=== PATIENT | female | born 1955 | race Caucasian/White ===

== ENCOUNTER 2023-09-10 23:31 | Observation (INO) | payer MEDICARE, SELFPAY ==
[2023-09-10 23:36] VITALS: BP 190/107; PULSE 65; RESP 16; TEMP 36.4; O2SAT 98
--- NOTE | 2023-09-10 23:44 | XRR_ITS ---
PROCEDURE INFORMATION: Exam: XR Chest Exam date and time: 09/10/2023 11:51 PM Age: 68 years old Clinical indication: Other: Palpitations; Chest wall pain; Additional info: Cp TECHNIQUE: Imaging protocol: Radiologic exam of the chest. Views: 1 view. COMPARISON: No relevant prior studies available. FINDINGS: Lungs: The lungs are clear. Pleural spaces: Although the left costophrenic angle is indistinct, this may be due to the heart and an epicardial fat pad. No definite abnormalities Heart/Mediastinum: Normal Bones/joints: Unremarkable. XR/XR chest 1V portable [id number] IMPRESSION: No acute findings
--- NOTE | 2023-09-10 23:45 | ECG_ITS ---
[facility] Test Date: 2023-09-10 Pat Name: Belkys Steiner Department: Room: Gender: Female Manager Social: : 1955 Requested By: Trip New Order Number: [id number] Lisandro MD: Johan Kim M.D. Measurements Intervals [place] Rate: 59 P: 45 MD: 124 QRS: -6 QRSD: 78 T: 35 QT: 410 QTc: 407 Interpretive Statements SINUS BRADYCARDIA WITH SINUS ARRHYTHMIA MODERATE ST DEPRESSION [0.05+ mV ST DEPRESSION] No previous ECG available for comparison Electronically Signed On 09-11-2023 12:18:50 LOGGING TRUCK DRIVER by Johan Kim M.D. [id number]
--- NOTE | 2023-09-10 23:50 | ED_ITS ---
HPI - Chest Pain 2 General: Chief Complaint: Chest Pain Stated Complaint: Chest Palpitations Time Seen by Provider: 09/10/23 23:34 Source: patient and EMS Mode of arrival: EMS Limitations: no limitations History of Present Illness: 68-year-old female who states she is her e on vacation she has a history A-fib states last 2-3 nights she has been having some palpitations at all resolved at home states she started having palpitations again tonight lasted longer than typical. She states that her symptoms have since resolved. States she had felt like she is just having her heart race she states she has been taking her meds she denies any worsening proving factors. Associated symptoms: Reports palpitations; Deny abdominal pain, dyspnea, fever(s), nausea or vomiting Review of Systems 2 Const: Denies: fever(s), chills, body aches or change in appetite ENMT: Denies: throat pain or dental pain Card: Reports: palpitations; Denies: chest pain Resp: Denies: dyspnea GI: Denies: abdominal pain, nausea, vomiting or diarrhea : Denies: dysuria Musc: Denies: neck pain or back pain Skin/Breast: Denies: rash Neuro: Denies: headache(s) Physical Exam 2 Const: COMMON NORMALS: no acute distress, patient oriented x3 and healthy appearing HENMT: COMMON NORMALS: normocephalic and atraumatic HEAD & SCALP: n ormocephalic and atraumatic Eye: COMMON NORMALS: conjunctivae normal CONJUNCTIVA: Yes conjunctivae normal Neck/C-Spine: COMMON NORMALS: full ROM and supple Chest: COMMONS NORMALS: normal inspection of the chest Resp: COMMON NORMALS: normal respiratory effort, No retractions, No use of accessory muscles and clear to auscultation bilaterally AUSCULTATION: clear to auscultation bilaterally Cardio: COMMON NORMALS: regular rate, regular rhythm and No murmurs present (Cardio) RATE: regular rate RHYTHM: regular rhythm Extremity: COMMON NORMALS: normal to inspection and full ROM Neuro: COMMON NORMALS: patient oriented x3, moves all extremities and no focal motor deficits Psych: COMMON NORMALS: mental status grossly normal, Normal thought process present and cooperative THOUGHT PROCESS: Normal thought process present Skin: COMMON NORMALS: no rashes or lesions noted and no wounds GENERAL SKIN EXAM: no rashes or lesions noted Course 2 Vital Signs: Vital signs: Vital Signs Temperature 97.6 F 09/10/23 23:36 Pulse Rate 57 L 09/11/23 02:12 Respiratory Rate 19 H 09/11/23 02:12 Blood Pressure 154/85 09/11/23 02:12 Pulse Oximetry 97 09/11/23 02:12 MDM - Chest Pain Medical Decision Making Patient presents here with chest pain does have some ST depression on her EKG her troponins here are negative CT shows no PE spoke to hospitalist will admit for ACS rule out at this time. Medical Records I reviewed the patient's medical records. Lab Data I reviewed the patient's lab results. 09/11/23 00:58 09/11/23 00:58 Radiology Impressions Chest X-Ray 09/10/23 23:44 IMPRESSION: No acute findings Chest CTA 09/11/23 01:48 IMPRESSION: 1. No pulmonary embolus. 2. No focal consolidation. Laboratory Results WBC 7.66 10^3/uL (3.29-11.43) 09/11/23 00:58 RBC 4.17 10^6/uL (3.85-5.65) 09/11/23 00:58 Hgb 14.00 g/dL (11.27-16.99) 09/11/23 00:58 Hct 39.3 % (36-47) 09/11/23 00:58 MCV 94.2 fl (85-98) 09/11/23 00:58 MCH 33.6 pg (27-33) H 09/11/23 00:58 MCHC 35.6 g/dL (30-55) 09/11/23 00:58 RDW 12.7 % (12.1-15.1) 09/11/23 00:58 Plt Count 234 10^3/cmm (157-399) 09/11/23 00:58 MPV 11.9 fL (7.4-10.4) H 09/11/23 00:58 Neut % (Auto) 62.7 % 09/11/23 00:58 Lymph % (Auto) 24.8 % 09/11/23 00:58 [place] % (Auto) 9.0 % 09/11/23 00:58 Eos % (Auto) 2.3 % 09/11/23 00:58 Baso % (Auto) 0.9 % 09/11/23 00:58 Neut # (Auto) 4.80 10^3/uL (1.8-7.7) 09/11/23 00:58 Lymph # (Auto) 1.9 10^3/uL (0.8-4.8) 09/11/23 00:58 [place] # (Auto) 0.7 10^3/uL (0.2-0.9) 09/11/23 00:58 Eos # (Auto) 0.2 10^3/uL (0.0-0.8) 09/11/23 00:58 Baso # (Auto) 0.1 10^3/uL (0.0-0.1) 09/11/23 00:58 Nucleated RBC % (auto) 0 % 09/11/23 00:58 Nucleated RBCs # 0.0 /100WBC 09/11/23 00:58 PT 12.80 SECONDS (12.1-14.9) 09/11/23 00:58 INR 0.94 (0.8-1.2) 09/11/23 00:58 Sodium 143 mmol/L (136-145) 09/11/23 00:58 Potassium 3.6 mmol/L (3.5-5.1) 09/11/23 00:58 Chloride 107 mmol/L (98-107) 09/11/23 00:58 Carbon Dioxide 22 mmol/L (22-29) 09/11/23 00:58 Anion Gap 17.6 (5-19) 09/11/23 00:58 BUN 14 mg/dL (8-23) 09/11/23 00:58 Creatinine 0.7 mg/dL (0.5-0.9) 09/11/23 00:58 GFR Calculation 83.5 mL/min (90-130) L 09/11/23 00:58 Glucose 109 mg/dL (65-115) 09/11/23 00:58 Calculated Osmolality 297 mOsm/kg (285-295) H 09/11/23 00:58 Calcium 9.8 mg/dL (8.5-10.5) 09/11/23 00:58 Total Bilirubin 0.6 mg/dL (0.15-1.2) 09/11/23 00:58 AST 17 U/L (0-32) 09/11/23 00:58 ALT 17 U/L (0-33) 09/11/23 00:58 Alkaline Phosphatase 143 U/L (35-105) H 09/11/23 00:58 Troponin T Baseline < 6 ng/L (0-10) 09/11/23 00:58 Troponin T 120 Minute 6.00 ng/L (0-10) 09/11/23 02:56 Delta Troponin T 0.62177 ABS# (0-10) 09/11/23 02:56 NT-Pro-B Natriuret Pep 1069 pg/mL (0-125) H 09/11/23 00:58 Total Protein 7.2 g/dL (6.6-8.7) 09/11/23 00:58 Albumin 4.3 g/dL (3.5-5.2) 09/11/23 00:58 Globulin 2.9 g/dL (1.3-4.6) 09/11/23 00:58 All radiology interpretation(s) finalized by discharge EKG Data EKG 1: I personally reviewed and interpreted this EKG as follows: EKG interpretation date: 09/10/23 EKG interpretation time: 23:36 Interpretation: sinus tor hr [address] or t wave abnormalities qrs 78 qtc 408 Discharge Plan Discharge Condition: Stable Coding Level of Care Code ED Reciprocating Drill Operator for Duran Shaikh
[2023-09-11] VITALS (18 sets, daily range): BP systolic 122–167; BP diastolic 62–86; PULSE 57–82; RESP 8–25; TEMP 36.6–36.8; O2SAT 95–99
[2023-09-11] MEDS: hyDRALAzine 20 mg/mL INJ 1 mL 10 MG IVP (00:19)
[2023-09-11 01:04] LABS: Basophils # 0.1 10^3/uL (0.0-0.1); Basophils % 0.9 %; Eosinophils # 0.2 10^3/uL (0.0-0.8); Eosinophils % 2.3 %; Hematocrit 39.3 % (36-47); Lymphocytes # 1.9 10^3/uL (0.8-4.8); Lymphocytes % 24.8 %; Mean Corpuscular HGB Conc 35.6 g/dL (30-55); Mean Corpuscular Hemoglobin 33.6 pg (27-33); Mean Corpuscular Volume 94.2 fl (85-98); Mean Platelet Volume 11.9 fL (7.4-10.4); Monocytes # 0.7 10^3/uL (0.2-0.9); Neutrophils % 62.7 %; Nucleated Red Blood Cells % 0 %; Platelet Count 234 10^3/cmm (157-399); Red Blood Count 4.17 10^6/uL (3.85-5.65); Red Cell Distribution Width 12.7 % (12.1-15.1); White Blood Count 7.66 10^3/uL (3.29-11.43)
[2023-09-11] MEDS: hyDRALAzine 20 mg/mL INJ 1 mL IVP (01:15)
[2023-09-11 01:17] LABS: INR 0.94 (0.8-1.2)
[2023-09-11 01:26] LABS: Troponin(5th) Baseline < 6 ng/L (0-10)
--- NOTE | 2023-09-11 01:27 | ECG_ITS ---
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 Measurements Intervals [place] Rate: 59 P: 64 HI: 126 QRS: 9 QRSD: 73 T: 25 QT: 416 QTc: 414 Interpretive Statements SINUS BRADYCARDIA WITH OCCASIONAL SUPRAVENTRICULAR PREMATURE COMPLEXES SEPTAL MYOCARDIAL INFARCTION , OF INDETERMINATE AGE [40+ ms Q WAVE IN V1/V2] Compared to ECG 09/10/2023 23:36:34 Myocardial infarct finding now present Sinus arrhythmia no longer present ST (T wave) deviation no longer present Electronically Signed On 09-11-2023 12:22:34 EXHIBIT CARPENTER by Johan Kim M.D. [id number]
[2023-09-11 01:31] LABS: Alanine Aminotransferase 17 U/L (0-33); Albumin Level 4.3 g/dL (3.5-5.2); Alkaline Phosphatase 143 U/L (35-105); Anion Gap 17.6 (5-19); Aspartate Amino Transferase 17 U/L (0-32); Blood Urea Nitrogen 14 mg/dL (8-23); Calcium 9.8 mg/dL (8.5-10.5); Carbon Dioxide 22 mmol/L (22-29); Chloride 107 mmol/L (98-107); Globulin 2.9 g/dL (1.3-4.6); Glomerular Filtration Rate 83.5 mL/min (90-130); Glucose 109 mg/dL (65-115); Osmolality Calculated 297 mOsm/kg (285-295); Potassium 3.6 mmol/L (3.5-5.1); Sodium 143 mmol/L (136-145); Total Bilirubin 0.6 mg/dL (0.15-1.2); Total Protein 7.2 g/dL (6.6-8.7)
--- NOTE | 2023-09-11 01:33 | PC.NURSE ---
Pt. having complaint of dizziness and chest pain after getting 20mg hydralyzine
[2023-09-11 01:35] LABS: NT Pro B Type Natriuretic Pept 1069 pg/mL (0-125)
[2023-09-11] MEDS: aspirin 81 mg Chew Tablet 324 MG PO (01:37)
--- NOTE | 2023-09-11 01:48 | CTR_ITS ---
PROCEDURE INFORMATION: Exam: CTA Chest With Contrast Exam date and time: 09/11/2023 2:18 AM Age: 68 years old Clinical indication: Chest wall pain; Additional info: Cp TECHNIQUE: Imaging protocol: Computed tomographic angiography of the chest with contrast. Exam focused on the arteries. 3D rendering (Not supervised by radiologist): MIP and/or 3D reconstructed images were created by the technologist. Radiation optimization: All CT scans at this facility use at least one of these dose optimization techniques: automated exposure control; mA and/or kV adjustment per patient size (includes targeted exams where dose is matched to clinical indication); or iterative reconstruction. Contrast material: OMNI 350; Contrast volume: 80 ml; Contrast route: INTRAVENOUS (IV); COMPARISON: CR (CHEST, ) 09/10/2023 11:51 PM RADIATION DOSE METRICS: Total DLP (mGy-cm): 412.79 FINDINGS: Pulmonary arteries: Normal. No pulmonary emboli. Aorta: Unremarkable. No aortic aneurysm. No aortic dissection. Lungs: Unremarkable. No consolidation. No masses. Pleural spaces: Unremarkable. No pneumothorax. No pleural effusion. Heart: Unremarkable. No cardiomegaly. No pericardial effusion. Lymph nodes: Unremarkable. No enlarged lymph nodes. Bones/joints: Unremarkable. No acute fracture. Soft tissues: Unremarkable. CT/CT angio chest PE protcl [id number] IMPRESSION: 1. No pulmonary embolus. 2. No focal consolidation.
--- NOTE | 2023-09-11 01:49 | PC.NURSE ---
Pt's family states that she has a new twitch in her legs.
[2023-09-11] MEDS: iohexol 350 mg/mL 500 mL Btl (per mL) IV (02:30)
[2023-09-11 03:19] LABS: Troponin 5 2HR Delta 0.00001 ABS# (0-10)
--- NOTE | 2023-09-11 04:13 | USCV_ITS ---
Belkys Steiner Age: 68 Gender: F : 1955 Exam Date: 09/11/2023 10:12 Ordering Phys: Anurag Abel MD Technologist: CT Exam Location: [facility] [place], [place] Indication: cp BP: 135 / 88 HR: 63 Rhythm: Sinus Technical Quality: Adequate MEASUREMENTS (Male / Female) Normal Values 2D ECHO LVOT Diameter 2.0 cm LV Ejection Fraction MOD 2C 50.8 % LV Ejection Fraction 2C AL 51.8 % LA Diameter 4.0 cm Aorta at Sinotubular Diameter 2.4 cm M-MODE Aortic Annulus Diameter 3.0 cm LA Ao Ratio MM 1.5 MV E Point Septal Separation 0.7 cm DOPPLER AV Peak Velocity 129.0 cm/s LVOT Peak Velocity 106.0 cm/s AV Area Cont Eq vti 2.6 cm squared AV Area Cont Eq pk 2.6 cm squared MV E' Velocity 6.0 cm/s TR Peak Velocity 104.0 cm/s TR Peak Gradient 4.3 mmHg TV Peak E Velocity 59.0 cm/s Right Atrial Pressure 3.0 mmHg Pulmonary Artery Systolic Pressu 7.3 mmHg PV Peak Velocity 109.0 cm/s FINDINGS Left Ventricle Normal left ventricular size, systolic function and wall thickness, with no regional wall motion abnormalities. Grade I/IV diastolic dysfunction (abnormal relaxation filling pattern), normal to mildly elevated filling pressures. Left ventricular ejection fraction is estimated at 65 %. Right Ventricle The right ventricle is normal in size and function. Right Atrium The right atrium is normal in size. Left Atrium The left atrium is normal in size. Mitral Valve Structurally normal mitral valve. Trace mitral valve regurgitation. Aortic Valve Structurally normal aortic valve without significant sclerosis or stenosis. There is no aortic regurgitation. Tricuspid Valve Structurally normal tricuspid valve without significant stenosis or regurgitation. Pulmonary artery systolic pressure is normal. Pulmonic Valve Pulmonic valve not well visualized. Pericardium Normal pericardium without effusion. Aorta Normal ascending aorta dimension. IVC The inferior vena cava appears normal. CONCLUSIONS Normal left ventricular size, systolic function and wall thickness, with no regional wall motion abnormalities. Grade I/IV diastolic dysfunction (abnormal relaxation filling pattern), normal to mildly elevated filling pressures. Left ventricular ejection fraction is estimated at 65 %. Structurally normal mitral valve. Trace mitral valve regurgitation. There are no prior echocardiogram studies to compare. Dr. Brandon Macdonald MD (Electronically Signed) Final Date: 11 September 2023 13:34 S
--- NOTE | 2023-09-11 04:15 | NMCV_ITS ---
NM alan perf SPECT r/s* [id number] Belkys Steiner Age: 68 Gender: F : 1955 Exam Date: 09/11/2023 06:58 Ordering Phys: Anurag Abel MD Technologist: GIANNI Bolden Exam Location: [facility] Indications: CHEST PAIN STRESS TEST Please see separate stress test report in [facility] for full findings IMAGE PROTOCOL Rest/Stress 1 Lexiscan Day Radiopharmaceutical Dose (mCi) Administration Site Administered by Rest: Tc-99m 10.9 IV GIANNI Jo Sestamibi Stress:Tc-99m 32.9 IV GIANNI Jo Sestamibi Rest: 11-Sep-2023 60 Discovery 630 Stress: 11-Sep-2023 30 Discovery 630 0.4mg Lexiscan. Images obtained in supine and prone position. SPECT RESULTS Technical Quality: Excellent Raw Data Analysis: Normal Image Corrections: No attenuation or motion correction applied Summed Stress Score: 4 Summed Rest Score: 1 Summed Difference Score: 3 PERFUSION FINDINGS There is a small sized, partially reversible perfusion defect noted in the inferolateral wall. This is consistent with small area of prior infarct with minimal periinfarct ischemia in the left circumflex artery territory. FUNCTIONAL RESULTS (calculated via Gated SPECT) Stress Image LV EF (%): 80 Stress EDV (mL):61 TID: 1.42 Stress ESV (mL):12 FUNCTIONAL FINDINGS: LV systolic function is normal. TID ratio is elevated and is 1.42. IMPRESSIONS 1. Small sized area of prior infarct with minimal atul-infarct ischemia seen in left circumflex artery territory. 2. LV systolic function is normal. 3. TID ratio is elevated and is 1.42. This may represent subendocardial ischemia. Johan Kim MD (Electronically Signed) Final Date: 11 September 2023 09:58 S
--- NOTE | 2023-09-11 04:33 | CTR_ITS ---
PROCEDURE INFORMATION: Exam: CT Head Without Contrast Exam date and time: 09/11/2023 4:47 AM Age: 68 years old Clinical indication: Altered mental status/memory loss and dizziness; Patient HX: Acting weird per family, patient states she has been a little dizzy; Additional info: Confusion TECHNIQUE: Imaging protocol: Computed tomography of the head without contrast. Radiation optimization: All CT scans at this facility use at least one of these dose optimization techniques: automated exposure control; mA and/or kV adjustment per patient size (includes targeted exams where dose is matched to clinical indication); or iterative reconstruction. COMPARISON: No relevant prior studies available. RADIATION DOSE METRICS: Total DLP (mGy-cm): 1079 FINDINGS: Brain: Normal. No hemorrhage. Unremarkable white matter. No mass effect. Cerebral ventricles: There is ventriculomegaly which may reflect central atrophy however it appears out of proportion to atrophic changes elsewhere and could reflect communicating or possibly normal pressure hydrocephalus in the proper clinical setting Paranasal sinuses: Visualized sinuses are unremarkable. No fluid levels. Mastoid air cells: Visualized mastoid air cells are well aerated. Bones/joints: Unremarkable. No acute fracture. Soft tissues: Unremarkable. There is intracranial atherosclerotic disease CT/CT head wo con* [id number] IMPRESSION: 1. Negative for acute infarction or hemorrhage. Negative for detectable mass. 2. Ventriculomegaly, see comments above.
--- NOTE | 2023-09-11 04:35 | PM.HP ---
Providers/Chief Complaint Admitting Physician: Anurag Abel MD Chief Complaint: Chest Papitations History of Present Illness Belkys Steiner is a 68 year old female with a past medical history of atrial fibrillation on Eliquis, however she does not take it regularly, at times she only takes it once daily, hypertension, hypothyroidism, who presents to [facility] due to chest pain, palpitations, shortness of breath, nausea vomiting. Patient tells me that she is from [place], but a year ago she was in [facility], when she tested positive for COVID and she had to be hospitalized that she was diagnosed with A-fib. Since then she has not followed up with cardiology and she is supposed to, a few years ago she did have a stress test which was within normal limits. She is supposed to follow-up with specialty department supervisor and have further testing that she has not followed up and made appointment as of yet. Patient presents to [facility] as for the last few days she has been feeling increasingly short of breath, and when she lies down, she has episodes of chest palpitations chest pressure, chest heaviness, associate with nausea and vomiting. Denies any fevers, no chills, no cough, no abdominal pain, no diaphoresis. She tells me that tonight, when she was sleeping, she woke up with severe chest pressure, chest palpitations, shortness of breath, nausea vomiting. Currently she is chest pain-free, in the emergency room, her troponin was 6, delta of 6, BNP was thousand 69, EKG showed ST depressions in inferior and lateral leads, CT angiogram negative for PE, currently she is alert to person, to place, she knows the president, she knows the year, she thinks it is Thursday then corrects herself, during my questioning, she looks to family members for a lot of the answers, she tells me that she intermittently takes her Eliquis, she never had a stroke, no facial droop no slurring of words, no focal weakness, [id number] normal, NIH stroke scale 0, no history of dementia, but frequently during my examination, she has looked to family members for answer, patient's family tells me that she has been like this for the last few hours, and as there is been frequent changes in her trip, she sometimes becomes. Forgetful Review of Systems Card: Reports: chest pain Resp: Reports: dyspnea GI: Denies: abdominal pain Medications/Allergies Home Medications Medication Instructions Recorded Confirmed Last Taken Type apixaban 5 mg tablet (Eliquis) 5 mg PO BID 09/11/23 09/11/23 09/10/23 09:00 History levothyroxine 112 mcg tablet 112 mcg PO 2XD 09/11/23 09/11/23 09/10/23 09:00 History losartan 50 mg tablet 50 mg PO DAILY 09/11/23 09/11/23 09/10/23 09:00 History mecobalamin (vitamin B12) 1,000 1,000 mcg PO DAILY 09/11/23 09/11/23 09/10/23 09:00 History mcg chewable tablet (B12 Active) sertraline 50 mg tablet 50 mg PO DAILY 09/11/23 09/11/23 09/10/23 09:00 History Allergies Allergy/AdvReac Type Severity Reaction Status Date / Time No Known Allergies Allergy Verified 09/11/23 00:14 PFSH Acute PFSH: Medical History (Updated 09/11/23 @ 04:41 by Anurag Abel MD) History of hypertension History of hypothyroidism History of atrial fibrillation Surgical History (Updated 09/11/23 @ 04:40 by Anurag Abel MD) No pertinent past surgical history Family History (Updated 09/11/23 @ 04:40 by Anurag Abel MD) Father CAD (coronary artery disease) Mother Breast cancer Social History (Updated 09/11/23 @ 04:40 by Anurag Abel MD) Smoking and tobacco/nicotine status: never used tobacco/nicotine Alcohol intake: never Substance/Drug Use: never Vitals/I&O/Wt Last Vital Signs Temp 97.6 F 09/10/23 23:36 Pulse 57 L 09/11/23 02:12 Resp 19 H 09/11/23 02:12 BP 154/85 09/11/23 02:12 Pulse Ox 97 09/11/23 02:12 O2 Del Method Room Air 09/11/23 04:13 Weight last 48 hrs Weight 79.197 kg Weight 79.379 kg Physical Exam Const: COMMON NORMALS: no acute distress and patient oriented x3 HENMT: COMMON NORMALS: normocephalic HEAD & SCALP: normocephalic Neck/C-Spine: COMMON NORMALS: no JVD Resp: COMMON NORMALS: normal respiratory effort, No retractions, No use of accessory muscles and clear to auscultation bilaterally AUSCULTATION: clear to auscultation bilaterally Cardio: COMMON NORMALS: no JVD, regular rate, regular rhythm, S1 normal heart sound present and S2 normal heart sound present RATE: regular rate RHYTHM: regular rhythm HEART SOUNDS: S1 normal heart sound present and S2 normal heart sound present GI: COMMON NORMALS: Normal to inspection, nondistended, normoactive bowel sounds present, Soft to palpation and non-tender PALPATION: Yes Soft to palpation Extremity: COMMON NORMALS: capillary refill normal, no clubbing, cyanosis or edema, no calf tenderness and no pedal edema Neuro: COMMON NORMALS: patient oriented x3, CN's II-XII intact bilaterally, moves all extremities and no focal motor deficits Psych: COMMON NORMALS: mental status grossly normal Data 09/11/23 00:58 09/11/23 00:58 A&P Assessment and plan (1) Chest pain: Plan Chest pain ? Could be underlying paroxysmal atrial fibrillation, as patient is not on any rate or rhythm control medications, ? Given her elevated BNP, she could be experiencing paroxysmal nocturnal dyspnea and orthopnea ? Her EKG does show significant ST depressions in inferior and lateral leads, but no significant delta troponin ? Does have family history of CAD in his father's in his 80s ? Plan, ? Serial EKGs, serial troponins, telemetry monitoring ? Has received aspirin 325 ?continue Eliquis -Monitor for chest pain -Cardiac echo -N.p.o. -Cardiac stress test -20 mg IV push Lasix -CT head -Full code -Eliquis for DVT prophylaxis Attestations Medical Necessity Statement*: Patient requires hospitalization, outpatient observation, for chest pain Diagnoses Chest pain R07.9
[2023-09-11 04:44] LABS: Estmated Average Glucose 80; Hemoglobin A1C 4.4 % (4.0-6.0)
[2023-09-11 04:53] LABS: Procalcitonin 0.04 ng/mL (0-0.5)
[2023-09-11 05:04] LABS: C Reactive Protein 10.4 mg/L (0.0-4.9); Chol HDL Ratio 5.12 mg/dL (0.0-4.40); Cholesterol 215 mg/dL (0-200); Gamma Glutamyl Transferase 63 U/L (5-36); HDL Cholesterol 42 mg/dL (60-100); LDL Cholesterol Calculated 133 mg/dL (50-129); LDL HDL Ratio 3.17 RATIO (0.00-3.22); Lipase 60 U/L (13-60); Triglycerides 202 mg/dL (0-150)
[2023-09-11 05:16] LABS: Alcohol Level 63 mg/dL (0-10)
[2023-09-11] MEDS: pantoprazole 40 mg SDV IVP (05:18)
[2023-09-11] MEDS: FUROsemide 10 mg/mL SDV 2mL 20 MG IVP (05:18)
--- NOTE | 2023-09-11 05:45 | ECG_ITS ---
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 Measurements Intervals [place] Rate: 72 P: 43 CA: 131 QRS: 2 QRSD: 77 T: 14 QT: 394 QTc: 432 Interpretive Statements SINUS RHYTHM WITH SINUS ARRHYTHMIA NONSPECIFIC ST & T-WAVE ABNORMALITY Compared to ECG 09/11/2023 01:27:37 T-wave abnormality now present Sinus bradycardia no longer present Myocardial infarct finding no longer present Electronically Signed On 09-11-2023 12:21:25 DIRECTOR BUSINESS SYSTEMS by Johan Kim M.D. [id number]
[2023-09-11] MEDS: levothyroxine 112 mcg Tablet PO (06:22)
[2023-09-11 06:33] LABS: Add Urine Microscopic? NO; Charge for UA Resulting for Rev
[2023-09-11 06:35] LABS: Bilirubin Urine Neg (Negative); Blood Urine Neg (Negative); Glucose Urine UA Norm (Normal); Ketones Urine Negative (Negative); Nitrate Urine Negative (Negative); Protein Urine Neg (Negative); Urine Appearance Clear (CLEAR); Urine Color Straw (Yellow); pH Urine 6.5 (5-7)
[2023-09-11 06:36] LABS: Leukocyte Esterase Urine Negative (Negative); Urobilinogen Urine Neg (Negative)
[2023-09-11 06:44] LABS: Amphetamines Screen Urine Negative (Negative); Barbiturates Screen Urine Negative (Negative); Benzodiazepines Screen Urine Negative (Negative); Cocaine Screen Urine Negative (Negative); Opiate Screen Urine Negative (Negative); PCP Screen Urine Negative (Negative); THC Screen Urine Negative (Negative)
--- NOTE | 2023-09-11 07:00 | ECG_ITS ---
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 Interpretive Statements NAME OF STUDY: LEXISCAN SESTAMIBI STRESS TEST INDICATION: [Chest Pain] Procedure: At the baseline, the blood pressure was 146/83 mmHg with a heart rate of 64 bpm. The electrocardiogram showed normal sinus rhythm, baseline ST depression in the inferior and lateral leads The Lexiscan was infused over a period of 20 seconds. A total of 0.4 mg of Lexiscan was infused. The stress phase was continued for a total of 5 minutes. Heart rate was at the end of stress phase was 77 bpm and a blood pressure of 149/76 mmHg. The EKG at the peak infusion revealed normal sinus rhythm with ST depression seen in inferior and lateral leads. Sestamibi was injected 20 seconds after the Lexiscan infusion. Blood pressure at the end of recovery phase was 155/83 mmHg with a heart rate of 76 bpm. Conclusion: 1. ST depression seen in the inferior and lateral leads present on the baseline EKG, more prominent after regadenosone infusion. 2. No Lexiscan induced chest pain or cardiac arrhythmia. 3. Normal blood pressure and heart rate response. 4. Sestamibi/sestamibi perfusion scan pending; see separate report. Electronically Signed On 09-27-2023 11:42:58 CASHIER CHECKER by Johan Kim M.D. [id number]
[2023-09-11 07:14] LABS: Troponin 5 6HR 7.56 ng/L (0-10)
[2023-09-11] MEDS: regadenoson 0.4 Mg/5 ml Syringe IVP (07:36)
[2023-09-11] MEDS: apixaban 5 mg Tablet PO (09:10)
[2023-09-11] MEDS: losartan 50 mg Tablet PO (09:10)
[2023-09-11] MEDS: sertraline 50 mg Tablet PO (09:11)
[2023-09-11] MEDS: cyanocobalamin 1,000 mcg Tablet 1000 MCG PO (09:11)
--- NOTE | 2023-09-11 11:23 | P.EN_ITS ---
Event Note Event Note: I discussed stress test report with Dr. Macdonald, Dr. Macdonald will see her today Patient has eaten her breakfast She is chest pain-free EKG changes noted she does have ST depression No active chest pain at the time of my evaluation Hemodynamically stable Hypertensive Currently on room air Patient is endorsing signs of ataxia and intermittent confusion She would like to follow-up with neurologist in [place]
[2023-09-11] MEDS: amlodipine 5 mg Tablet PO (11:53)
--- NOTE | 2023-09-11 12:34 | P.CONIM_ITS ---
Providers/Reason For Consult 2 Consulting Physician/Specialty*: Cardiovascular medicine Reason for Consult*: Palpitations, abnormal stress test Requesting Physician: Hospitalist Attending Physician: Rosa Escalante MD History of Present Illness History of Present Illness Belkys Steiner is a 68 year old female with no known previous history of coronary artery disease. She apparently does have atrial fibrillation but does not use any AV maty blocking agents and does not take Eliquis as it is prescribed. She lives in [place]. She was here visiting family and friends. She gets what she describes as spells . The start out with a sudden sensation that her heart is racing which then causes shortness of breath. Episodes of chest pain and shortness of breath come on only after she has a spell which begins with palpitations. She does not have chest pain or shortness of breath at any other time. There is no exertional chest discomfort or shortness of breath. Typically she takes a baby aspirin which she says resolves these episodes. Last night she took a aspirin when she had an episode and it did not resolve so she came to the emergency room. She was not in atrial fibrillation and was not tachycardic. She apparently had a couple more episodes while she was in the emergency room which were not associated with any tachycardia or arrhythmias. Her first EKG was basically normal with some minimal ST depression. The second EKG showed more diffuse global ST depression. The third EKG was back to baseline and normal. Her BNP was 1069. Her cholesterol and triglycerides are high. Her troponin was negligible, 6 and 7.56. An echocardiogram has been ordered of course. She had a stress test which showed a small partially reversible defect with minimal atul-infarct ischemia in the distribution of the circumflex. Her ejection fraction was normal. I was asked to see her for consideration of coronary angiography. She has a history of hypothyroidism, ill-defined history of atrial fibrillation, hypertension. She is not a smoker. She does not take her Eliquis as it is prescribed. Review of Systems 2 Narrative: Review of systems is negative Medications/Allergies Home Medications Medication Instructions Recorded Confirmed Last Taken Type apixaban 5 mg tablet (Eliquis) 5 mg PO BID 09/11/23 09/11/23 09/10/23 09:00 History levothyroxine 112 mcg tablet 112 mcg PO 2XD 09/11/23 09/11/23 09/10/23 09:00 History losartan 50 mg tablet 50 mg PO DAILY 09/11/23 09/11/23 09/10/23 09:00 History mecobalamin (vitamin B12) 1,000 1,000 mcg PO DAILY 09/11/23 09/11/23 09/10/23 09:00 History mcg chewable tablet (B12 Active) sertraline 50 mg tablet 50 mg PO DAILY 09/11/23 09/11/23 09/10/23 09:00 History Allergies Allergy/AdvReac Type Severity Reaction Status Date / Time No Known Allergies Allergy Verified 09/11/23 00:14 Current Medications Generic Name Dose Route Start Last Admin Trade Name Freq PRN Reason Stop Dose Admin Amlodipine Besylate 5 mg 09/11/23 11:25 09/11/23 11:53 Amlodipine 5 Mg Tablet PO 5 mg DAILY ABDIEL Administration Apixaban 5 mg 09/11/23 09:00 09/11/23 09:10 Apixaban 5 Mg Tablet PO 5 mg BID ABDIEL Administration Cyanocobalamin 1,000 mcg 09/11/23 09:00 09/11/23 09:11 Cyanocobalamin 1,000 Mcg Tablet PO 1,000 mcg DAILY ABDIEL Administration Levothyroxine Sodium 112 mcg 09/11/23 07:00 09/11/23 06:22 Levothyroxine 112 Mcg Tablet PO 112 mcg ACBREAKFAST ABDIEL Administration Losartan Potassium 50 mg 09/11/23 09:00 09/11/23 09:10 Losartan 50 Mg Tablet PO 50 mg DAILY ABDIEL Administration Pantoprazole Sodium 40 mg 09/11/23 06:00 09/11/23 05:18 Pantoprazole 40 Mg Sdv IVP 40 mg Q24H ABDIEL Administration Sertraline HCl 50 mg 09/11/23 09:00 09/11/23 09:11 Sertraline 50 Mg Tablet PO 50 mg DAILY ABDIEL Administration PFSH Acute 2 PFSH: Medical History (Updated 09/11/23 @ 12:40 by Brandon Macdonald MD) Palpitations History of hypertension History of hypothyroidism History of atrial fibrillation Surgical History (Updated 09/11/23 @ 04:40 by Anurag Abel MD) No pertinent past surgical history Family History (Updated 09/11/23 @ 04:40 by Anurag Abel MD) Father CAD (coronary artery disease) Mother Breast cancer Social History (Updated 09/11/23 @ 04:40 by Anurag Abel MD) Smoking and tobacco/nicotine status: never used tobacco/nicotine Alcohol intake: never Substance/Drug Use: never Vitals/I&O/Wt Last Vital Signs Temp 97.9 F 09/11/23 11:48 Pulse 67 09/11/23 11:48 Resp 25 H 09/11/23 11:48 BP 160/85 09/11/23 11:48 Pulse Ox 97 09/11/23 11:48 O2 Del Method Room Air 09/11/23 11:48 09/10/23 09/11/23 09/11/23 22:59 06:59 14:59 Intake Total 480 / 480 Output Total 200 / 200 Balance 280 / 280 Weight last 48 hrs Weight 174 lb Weight 174 lb 9.6 oz Weight 175 lb Physical Exam 2 Narrative: GENERAL: In general she looks and feels well HEENT: Exam within normal limits. NECK: Supple without jugular vein distention. The carotid upstroke is normal without bruits. BACK: Exam normal. LUNGS: Clear. HEART: Regular rate and rhythm. ABDOMEN: Benign without organomegaly or tenderness. EXTREMITIES: No edema. NEUROLOGIC: Exam normal. SKIN: Unremarkable. Data 09/11/23 00:58 09/11/23 00:58 A&P Assessment and plan (1) Palpitations: (2) History of hypertension: (3) History of atrial fibrillation: Plan I think the likelihood of significant coronary disease is low. Her troponins are essentially is negative. The 1 EKG was abnormal however and despite this her troponins have been completely unremarkable. Stress test is minimally abnormal and is a very low risk scan. I do not feel compelled to perform angiography. Currently she is free of symptoms. Interestingly, her , friend and even the patient asked me if anxiety can do this after we finished discussing everything. I offered her angiography but told her that I did not think that it was absolutely necessary. 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 She wishes to go back there and visit with them. What I would do in the meantime is prescribe her low-dose metoprolol tartrate 25 mg to be used on an as-needed basis when she gets 1 of these episodes. I think these episodes are entirely consistent with anxiety. Her states that they plan to move here. She may follow-up in our office if she decides to move back here. Consult Attestations 2 Medical Necessity Statement: I believe she can safely be discharged to use low-dose metoprolol to tartrate on an as-needed basis. and Moderate Time for a total of 40 minutes, includes reviewing past or interval history, examining/interviewing patient, counseling patient/family/other support, updating patient/family/other support, discussing plan of care with staff, communicating with other healthcare providers and documenting encounter Diagnoses Palpitations R00.2 History of hypertension Z86.79 History of atrial fibrillation Z86.79
--- NOTE | 2023-09-11 12:55 | P.DS_ITS ---
Discharge Providers Date of Admission: 09/11/23 04:43 Date of Discharge: September 11, 2023 Attending Provider at Admission: Anurag Abel MD Attending Provider at Discharge: Rosa Escalante MD Diagnoses at Discharge Discharge Diagnosis (1) Palpitations: Status: Acute (2) History of hypertension: Status: Acute (3) History of atrial fibrillation: Status: Acute Reason for Visit Reason for Visit: Chest Papitations Hospital Course Hospital Course 68-year female who presented with chief complaint of palpitation and chest pressure, case was presented to the soakers supervisor, patient went for stress test which showed atul-infarct ischemia, cardiology was consulted, patient is wanting to follow-up with her soakers supervisor in [place], I did speak to her regarding normal pressure hydrocephalus signs and symptoms and she should follow-up with the neurologist in [place] as well. She understood all questions were answered to their satisfaction. Will add metoprolol along aspirin at the time of discharge. He was given thiamine and folic acid clinically she was not in fluid overload however her BNP was 1000. Physical Exam Narrative: No active signs of intracranial hypertension GCS 15 No active chest pain Present Hemodynamically stable Hypertensive Discharge Data Studies Completed and Pending Completed Studies During Hospitalization Category Date Time Status CT head wo con* [id number] Stat Cat Scan 09/11/23 04:33 Completed CTA chest [CT angio chest PE protcl [id number]] Stat Cat Scan 09/11/23 01:48 Completed XR chest 1V portable [id number] Stat Exams 09/10/23 23:44 Completed NM alan perf SPECT r/s* [id number] Routine Nuc Med 09/11/23 04:15 Completed Pending at discharge Category Date Time Status Sestamibi Stress Test Request Routine Exams 09/12/23 06:00 Ordered Basic Metabolic Panel AM LABS Lab 09/12/23 04:00 Ordered CV. echo complete* [id number] Routine Ultrasound 09/11/23 04:13 Taken Radiology Impressions Chest X-Ray 09/10/23 23:44 IMPRESSION: No acute findings Chest CTA 09/11/23 01:48 IMPRESSION: 1. No pulmonary embolus. 2. No focal consolidation. Head CT 09/11/23 04:33 IMPRESSION: 1. Negative for acute infarction or hemorrhage. Negative for detectable mass. 2. Ventriculomegaly, see comments above. Laboratory Results WBC 7.66 10^3/uL (3.29-11.43) 09/11/23 00:58 RBC 4.17 10^6/uL (3.85-5.65) 09/11/23 00:58 Hgb 14.00 g/dL (11.27-16.99) 09/11/23 00:58 Hct 39.3 % (36-47) 09/11/23 00:58 MCV 94.2 fl (85-98) 09/11/23 00:58 MCH 33.6 pg (27-33) H 09/11/23 00:58 MCHC 35.6 g/dL (30-55) 09/11/23 00:58 RDW 12.7 % (12.1-15.1) 09/11/23 00:58 Plt Count 234 10^3/cmm (157-399) 09/11/23 00:58 MPV 11.9 fL (7.4-10.4) H 09/11/23 00:58 Neut % (Auto) 62.7 % 09/11/23 00:58 Lymph % (Auto) 24.8 % 09/11/23 00:58 [place] % (Auto) 9.0 % 09/11/23 00:58 Eos % (Auto) 2.3 % 09/11/23 00:58 Baso % (Auto) 0.9 % 09/11/23 00:58 Neut # (Auto) 4.80 10^3/uL (1.8-7.7) 09/11/23 00:58 Lymph # (Auto) 1.9 10^3/uL (0.8-4.8) 09/11/23 00:58 [place] # (Auto) 0.7 10^3/uL (0.2-0.9) 09/11/23 00:58 Eos # (Auto) 0.2 10^3/uL (0.0-0.8) 09/11/23 00:58 Baso # (Auto) 0.1 10^3/uL (0.0-0.1) 09/11/23 00:58 Nucleated RBC % (auto) 0 % 09/11/23 00:58 Nucleated RBCs # 0.0 /100WBC 09/11/23 00:58 PT 12.80 SECONDS (12.1-14.9) 09/11/23 00:58 INR 0.94 (0.8-1.2) 09/11/23 00:58 Sodium 143 mmol/L (136-145) 09/11/23 00:58 Potassium 3.6 mmol/L (3.5-5.1) 09/11/23 00:58 Chloride 107 mmol/L (98-107) 09/11/23 00:58 Carbon Dioxide 22 mmol/L (22-29) 09/11/23 00:58 Anion Gap 17.6 (5-19) 09/11/23 00:58 BUN 14 mg/dL (8-23) 09/11/23 00:58 Creatinine 0.7 mg/dL (0.5-0.9) 09/11/23 00:58 GFR Calculation 83.5 mL/min (90-130) L 09/11/23 00:58 Glucose 109 mg/dL (65-115) 09/11/23 00:58 Estimat Average Glucose 80 09/11/23 00:58 Hemoglobin A1c 4.4 % (4.0-6.0) 09/11/23 00:58 Calculated Osmolality 297 mOsm/kg (285-295) H 09/11/23 00:58 Calcium 9.8 mg/dL (8.5-10.5) 09/11/23 00:58 Total Bilirubin 0.6 mg/dL (0.15-1.2) 09/11/23 00:58 GGT 63 U/L (5-36) H 09/11/23 02:56 AST 17 U/L (0-32) 09/11/23 00:58 ALT 17 U/L (0-33) 09/11/23 00:58 Alkaline Phosphatase 143 U/L (35-105) H 09/11/23 00:58 Troponin T Baseline < 6 ng/L (0-10) 09/11/23 00:58 Troponin T 120 Minute 6.00 ng/L (0-10) 09/11/23 02:56 Delta Troponin T 0.14324 ABS# (0-10) 09/11/23 02:56 Troponin T Hi Sens 6Hr 7.56 ng/L (0-10) 09/11/23 06:40 Troponin T Hi Sens 6Hr Delta 1.66007 ng/L (0-12) 09/11/23 06:40 C-Reactive Protein 10.4 mg/L (0.0-4.9) H 09/11/23 02:56 NT-Pro-B Natriuret Pep 1069 pg/mL (0-125) H 09/11/23 00:58 Total Protein 7.2 g/dL (6.6-8.7) 09/11/23 00:58 Albumin 4.3 g/dL (3.5-5.2) 09/11/23 00:58 Globulin 2.9 g/dL (1.3-4.6) 09/11/23 00:58 Triglycerides 202 mg/dL (0-150) H 09/11/23 02:56 Cholesterol 215 mg/dL (0-200) H 09/11/23 02:56 LDL Cholesterol, Calc 133 mg/dL (50-129) H 09/11/23 02:56 HDL Cholesterol 42 mg/dL (60-100) L 09/11/23 02:56 LDL/HDL Ratio 3.17 RATIO (0.00-3.22) 09/11/23 02:56 Cholesterol/HDL Ratio 5.12 mg/dL (0.0-4.40) H 09/11/23 02:56 Lipase 60 U/L (13-60) 09/11/23 02:56 Procalcitonin 0.04 ng/mL (0-0.5) 09/11/23 02:56 TSH 18.10 uIU/mL (0.27-4.20) H 09/11/23 02:56 Urine Color Straw (Yellow) 09/11/23 06:30 Urine Appearance Clear (CLEAR) 09/11/23 06:30 Urine pH 6.5 (5-7) 09/11/23 06:30 Ur Specific [place] 1.000 (1.005-1.030) L 09/11/23 06:30 Urine Protein Neg (Negative) 09/11/23 06:30 Urine Glucose (UA) Norm (Normal) 09/11/23 06:30 Urine Ketones Negative (Negative) 09/11/23 06:30 Urine Blood Neg (Negative) 09/11/23 06:30 Urine Nitrate Negative (Negative) 09/11/23 06:30 Urine Bilirubin Neg (Negative) 09/11/23 06:30 Urine Urobilinogen Neg mg/dL (Negative) 09/11/23 06:30 Ur Leukocyte Esterase Negative (Negative) 09/11/23 06:30 Urine Opiates Screen Negative ng/mL (Negative) 09/11/23 06:30 Ur Barbiturates Screen Negative ng/mL (Negative) 09/11/23 06:30 Ur Phencyclidine Scrn Negative ng/mL (Negative) 09/11/23 06:30 Ur Amphetamines Screen Negative ng/mL (Negative) 09/11/23 06:30 U Benzodiazepines Scrn Negative ng/mL (Negative) 09/11/23 06:30 Urine Cocaine Screen Negative ng/mL (Negative) 09/11/23 06:30 U Marijuana (THC) Screen Negative ng/mL (Negative) 09/11/23 06:30 Ethyl Alcohol 63 mg/dL (0-10) H 09/11/23 02:56 Vitals Last Vital Signs Temp 97.9 F 09/11/23 11:48 Pulse 67 09/11/23 11:48 Resp 25 H 09/11/23 11:48 BP 160/85 09/11/23 11:48 Pulse Ox 97 09/11/23 11:48 O2 Del Method Room Air 09/11/23 11:48 Discharge Plan Discharge Patient Disposition: Home Condition: Stable Prescriptions: New metoprolol tartrate 25 mg tablet 25 mg PO BID Qty: 60 0RF Continued losartan 50 mg Tablet 50 mg PO DAILY sertraline 50 mg Tablet 50 mg PO DAILY levothyroxine 112 mcg Tablet 112 mcg PO 2XD Eliquis 5 mg tablet 5 mg PO BID B12 Active 1,000 mcg Tablet,Chewable 1,000 mcg PO DAILY Discharge Orders: Discharge Order (Routine); Ordered 09/11/23 Ordered By: Rosa Escalante Patient Instructions: Opioid Safety Discharge Attestations Time Spent in Discharge Care*: greater than 30 min Quality Metrics Clinical Quality Measures [ No reported AMI, CVA or VTE this stay] Coding Level of Care Code Acute Code for Chg Fwd Diagnoses Palpitations R00.2 History of hypertension Z86.79 History of atrial fibrillation Z86.79
--- NOTE | 2023-09-11 14:36 | PC.NURSE ---
Discharge Note Patient discharged to [home] via [w/c to POV] accompanied by [spouse and family / friends]. Discharge instructions reviewed with patient and/or customer counter representative. Mobile pharmacy medications and/or prescriptions provided. Belongings/home medications returned.
== END 2023-09-11 14:17 | disposition home or self-care (01) ==
LOC: ER 23:53 → CSU 09-11 04:23
PROVIDERS: Admitting Provider Family Medicine; Emergency Provider Emergency Medicine; Visit Provider Internal Medicine
DX: R07.89 Other chest pain (principal); R00.2 Palpitations; Z86.79 Personal history of other diseases of the circulatory system; I25.10 Atherosclerotic heart disease of native coronary artery without angina pectoris; I48.91 Unspecified atrial fibrillation; E03.9 Hypothyroidism, unspecified; I10 Essential (primary) hypertension; Z91.148 Patient's other noncompliance with medication regimen for other reason; Z79.01 Long term (current) use of anticoagulants; Z86.16 Personal history of COVID-19
CPT/HCPCS: 36415; 70450; 71045; 71275; 78452; 80053; 80061; 80306; 80307; 81003; 82977; 83036; 83690; 83880; 84145; 84443; 84484; 85025; 85610; 86140; 93005; 93017; 93306; 94664; 96374; 96375; 96376; 99285; A9500; C9113; G0378; J0360; J1940; J2785; Q9967

== ENCOUNTER → 2024-01-12 09:39 | Outpatient (BNVA) | payer MEDICARE, SELFPAY | PROVIDERS: PCP Family Medicine Adult Medicine; Visit Provider Family Medicine Adult Medicine | DX: I25.10 Atherosclerotic heart disease of native coronary artery without angina pectoris (principal); I10 Essential (primary) hypertension; G47.30 Sleep apnea, unspecified; E03.9 Hypothyroidism, unspecified; E06.3 Autoimmune thyroiditis | CPT/HCPCS: 80053; 80061; 83721; 84443; 85025 ==

== ENCOUNTER → 2024-01-22 09:28 | Outpatient (BNVA) | payer MEDICARE, SELFPAY | PROVIDERS: PCP Family Medicine Adult Medicine; Referring Provider Family Medicine Adult Medicine; Visit Provider Internal Medicine Cardiovascular Disease | DX: I48.91 Unspecified atrial fibrillation (principal); I10 Essential (primary) hypertension; E78.5 Hyperlipidemia, unspecified; F41.9 Anxiety disorder, unspecified; F32.A Depression, unspecified; G47.30 Sleep apnea, unspecified; Z79.01 Long term (current) use of anticoagulants | CPT/HCPCS: 99213 ==

== ENCOUNTER → 2024-03-16 10:20 | Outpatient (BNVA) | payer OTHER, SELFPAY | PROVIDERS: PCP Family Medicine Adult Medicine; Referring Provider Family Medicine Adult Medicine; Visit Provider Psychiatry & Neurology Neurology | DX: E55.9 Vitamin D deficiency, unspecified (principal) | CPT/HCPCS: 36415; 82306; 82607; 82746; 83090; 83735; 83921 ==

== ENCOUNTER 2024-04-12 14:23 | Outpatient (CLI) | payer MEDICARE, SELFPAY ==
--- NOTE | 2024-04-12 14:30 | MR_ITS ---
WS: [id number] MRI HEAD WITH CONTRAST TECHNIQUE: Sagittal T1, T2 axial, T2 axial FLAIR, axial susceptibility weighted imaging, axial diffus ion weighted images, and coronal T2 images were obtained. Pre and post-T1 axial and post T1 coronal i mages. ADC and FSPGR images. CLINICAL INFORMATION: G47.10 - Hypersomnia, unspecified COMPARISON: None. FINDINGS: Dilatation of the ventricular system can be seen with normal pressure hydrocephalus in the appropriat e clinical setting. No evidence of transependymal edema. Suggestion of hyperdynamic flow in the aqued uct which can be seen with normal pressure hydrocephalus. Thinning of the corpus callosum with crowdi ng of the sulci at the vertex also typical findings associated with NPH.. Mild small vessel changes with moderate parenchymal volume loss. Small vessel changes in the izabella. No evidence of restricted diffusion to suggest acute ischemia. No hemosiderin on the susceptibility w eighted images.Mucosal thickening RIGHT mastoid tip. Tiny chronic lacunar infarct adjacent to the RIG HT frontal horn. Normal optic chiasm and pituitary infundibulum. Moderate symmetric atrophy temporal lobes and hippocampal formations. No abnormal gadolinium enhancement. MR/MR head wo/w con [id number] IMPRESSION: 1. No evidence of restricted diffusion to suggest acute ischemia. 2. Ventricular dilatation with findings suggestive of normal pressure hydrocep halus in the appropriate clinical setting. No transependymal edema. 3. Mild small vessel changes with moderate parenchymal volume loss. 4. No hemosiderin on the susceptibly weighted images. 5. Tiny chronic lacunar infarct adjacent to the RIGHT frontal horn.
[2024-04-12] MEDS: gadobenate dimeglumine 5 mL vial IV (15:32)
== END 2024-04-12 14:24 | disposition home or self-care (01) ==
LOC: RAD 14:23
PROVIDERS: PCP Family Medicine Adult Medicine; Visit Provider Psychiatry & Neurology Neurology
DX: G47.10 Hypersomnia, unspecified (principal); G31.9 Degenerative disease of nervous system, unspecified; G93.81 Temporal sclerosis
CPT/HCPCS: 70553; A9577

== ENCOUNTER 2024-04-27 13:29 | Outpatient (CLI) | payer MEDICARE, SELFPAY | END 2024-04-27 13:30 | disposition home or self-care (01) | LOC: SLEEP 13:32 | PROVIDERS: PCP Family Medicine Adult Medicine; Visit Provider Family Medicine Adult Medicine | DX: G47.33 Obstructive sleep apnea (adult) (pediatric) (principal) | CPT/HCPCS: G0399 ==

== ENCOUNTER → 2024-07-22 10:19 | Outpatient (BNVA) | payer MEDICARE, SELFPAY | PROVIDERS: PCP Family Medicine Adult Medicine; Visit Provider Internal Medicine | DX: E06.3 Autoimmune thyroiditis (principal); E78.5 Hyperlipidemia, unspecified; I25.118 Atherosclerotic heart disease of native coronary artery with other forms of angina pectoris; I48.91 Unspecified atrial fibrillation; Z79.890 Hormone replacement therapy | CPT/HCPCS: 36415; 83516; 84439; 84443; 99204 ==

== ENCOUNTER 2024-09-06 13:09 | Emergency (ER) | payer MEDICARE, SELFPAY ==
[2024-09-06 13:31] VITALS: BP 161/81; PULSE 72; RESP 17; TEMP 37.2; O2SAT 97; BMI 27.4
--- NOTE | 2024-09-06 13:36 | XRR_ITS ---
PROCEDURE INFORMATION: Exam: XR Chest Exam date and time: 09/06/2024 1:45 PM Age: 69 years old Clinical indication: Cough TECHNIQUE: Imaging protocol: Radiologic exam of the chest. Views: 1 view. COMPARISON: CT angio chest PE protcl [id number] 09/11/2023 2:18 AM FINDINGS: Lungs: Unremarkable. No consolidation. Pleural spaces: Unremarkable. No pleural effusion. No pneumothorax. Heart/Mediastinum: Unremarkable. No cardiomegaly. Bones/joints: Unremarkable. XR/XR chest 1V portable [id number] IMPRESSION: No acute findings.
--- NOTE | 2024-09-06 13:59 | ED_ITS ---
HPI - URI/Sore Throat General: Chief Complaint: Upper Respiratory Infection Stated Complaint: sick Time Seen by Provider: 09/06/24 13:36 Source: patient Mode of arrival: ambulatory Limitations: no limitations History of Present Illness: 69-year-old female states that she has h ad cough congestion body aches that started yesterday she states she has had multiple sick contacts including her who tested positive for flu a yesterday. She denies any severe shortness of breath denies any worse improving factors. Associated symptoms: Reports chills; Deny abdominal pain, chest pain, diarrhea, fever(s), headache(s), nausea or vomiting Related Data Home Medications Medication Instructions Recorded Confirmed mecobalamin (vitamin B12) 1,000 1,000 mcg PO DAILY 09/11/23 09/06/24 mcg chewable tablet (B12 Active) metoprolol tartrate 25 mg tablet 25 mg PO DAILY 07/22/24 09/06/24 Previous Rx's Medication Instructions Recorded apixaban 5 mg tablet (Eliquis) 5 mg PO BID blood thinner #60 tabs 03/17/24 cholecalciferol (vitamin D3) 1,250 50,000 unit PO .weekly #14 caps 03/17/24 mcg (50,000 unit) capsule CPAP 6-16cm mmHg setting #1 ea 05/26/24 CPAP mask, tubing, supplies #1 ea 05/26/24 atorvastatin 40 mg tablet 40 mg PO DAILY #90 tabs 07/22/24 losartan 100 mg tablet 100 mg PO DAILY hypertension #90 07/22/24 tabs sertraline 100 mg tablet 100 mg PO DAILY mental health #90 07/22/24 tabs levothyroxine 112 mcg tablet 112 mcg PO DAILY #60 tabs 07/26/24 oseltamivir 75 mg capsule (Tamiflu) 75 mg PO BID 5 days #10 caps 09/06/24 Allergies Allergy/AdvReac Type Severity Reaction Status Date / Time No Known Allergies Allergy Verified 09/06/24 13:34 Review of Systems Const: Reports: chills and body aches; Denies: fever(s) or change in appetite ENMT: Denies: throat pain or dental pain Card: Denies: chest pain Resp: Reports: non-productive cough; Denies: dyspnea GI: Denies: abdominal pain, nausea, vomiting or diarrhea Musc: Denies: neck pain or back pain Skin/Breast: Denies: rash Neuro: Denies: headache(s) PFSH ED PFSH: Medical History Screening for breast cancer Hyperlipidemia Eliot's disease Sleep apnea syndrome CAD (coronary artery disease), [place] coronary artery Anxiety and depression Hypothyroidism (acquired) HTN (hypertension) History of atrial fibrillation Palpitations Surgical History No pertinent past surgical history Family History Father CAD (coronary artery disease) Mother Breast cancer Social History Smoking and tobacco/nicotine status: never used tobacco/nicotine Alcohol intake: never Substance/Drug Use: never Physical Exam Const: COMMON NORMALS: no acute distress, patient oriented x3 and healthy ap pearing HENMT: COMMON NORMALS: normocephalic and atraumatic HEAD & SCALP: normocephalic and atraumatic Eye: COMMON NORMALS: conjunctivae normal CONJUNCTIVA: Yes conjunctivae normal Neck/C-Spine: COMMON NORMALS: full ROM and supple Chest: COMMONS NORMALS: normal inspection of the chest Resp: COMMON NORMALS: normal respiratory effort, No retractions, No use of accessory muscles and clear to auscultation bilaterally AUSCULTATION: clear to auscultation bilaterally Cardio: COMMON NORMALS: regular rate, regular rhythm and No murmurs present (Cardio) RATE: regular rate RHYTHM: regular rhythm Extremity: COMMON NORMALS: normal to inspection and full ROM Neuro: COMMON NORMALS: patient oriented x3, moves all extremities and no focal motor deficits Psych: COMMON NORMALS: mental status grossly normal, Normal thought process present and cooperative THOUGHT PROCESS: Normal thought process present Skin: COMMON NORMALS: no rashes or lesions noted and no wounds GENERAL SKIN EXAM: no rashes or lesions noted Course Vital Signs: Vital signs: Vital Signs Temperature 98.9 F 09/06/24 13:31 Pulse Rate 72 09/06/24 13:31 Respiratory Rate 17 09/06/24 13:31 Blood Pressure 161/81 09/06/24 13:31 Pulse Oximetry 97 09/06/24 13:31 Oxygen Delivery Me thod Room Air 09/06/24 13:31 MDM - URI/Sore Throat Medical Decision Making Patient presents here with cough congestion likely is influenza as she has had multiple close contacts no reason to test her x-ray shows no acute abnormality we will start her on Tamiflu she is stable for discharge follow-up with PCP return if worsening Medical Records I reviewed the patient's medical records. XR interpretation done by ED provider, pending radiology final review ED provider radiology interpretation(s): Chest x-ray no acute abnormality Discharge Plan Discharge Patient Disposition: Home Clinical Impression: Influenza Condition: Stable Prescriptions: New oseltamivir [Tamiflu] 75 mg capsule 75 mg PO BID 5 Days Qty: 10 0RF No Action metoprolol tartrate 25 mg tablet 25 mg PO DAILY Eliquis 5 mg tablet 5 mg PO BID Qty: 60 5RF cholecalciferol (vitamin D3) 1,250 mcg (50,000 unit) capsule 50,000 unit PO .weekly Qty: 14 3RF (DME) CPAP 6-16cm mmHg setting See Rx Instructions .ROUTE .MEDSUPPLY Qty: 1 0RF Rx Instructions: As directed (DME) CPAP mask, tubing, supplies See Rx Instructions .ROUTE .MEDSUPPLY Qty: 1 1RF Rx Instructions: As directed atorvastatin 40 mg tablet 40 mg PO DAILY Qty: 90 1RF sertraline 100 mg tablet 100 mg PO DAILY Qty: 90 0RF losartan 100 mg tablet 100 mg PO DAILY Qty: 90 3RF levothyroxine 112 mcg tablet 112 mcg PO DAILY Qty: 60 1RF mecobalamin (vitamin B12) [B12 Active] 1,000 mcg Tablet,Chewable 1,000 mcg PO DAILY Discharge Orders: Discharge ED (Routine); Ordered 09/06/24 Ordered By: Trip New Referrals: Teo Hunter MD [Primary Care Provider] - 4-7 days Discharge Diet: Advance as tolerated Discharge Activity: Resume usual activity Patient Instructions: Influenza (ED) Coding Level of Care Code ED Director Of Corporate Marketing for Duran Shaikh
[2024-09-06] MEDS: dexamethasone 10 mg/mL INJ IM (14:24)
[2024-09-06 15:06] VITALS: BP 162/89; PULSE 78; O2SAT 99
[2024-09-06 15:07] VITALS: BP 162/89; PULSE 78; O2SAT 99
== END 2024-09-06 15:07 | disposition home or self-care (01) ==
PROVIDERS: Emergency Provider Emergency Medicine; PCP Family Medicine Adult Medicine
DX: J11.1 Influenza due to unidentified influenza virus with other respiratory manifestations (principal); Z79.01 Long term (current) use of anticoagulants; I25.10 Atherosclerotic heart disease of native coronary artery without angina pectoris; I10 Essential (primary) hypertension; E78.5 Hyperlipidemia, unspecified
CPT/HCPCS: 71045; 96372; 99284; J1100

== ENCOUNTER → 2024-09-21 09:02 | Outpatient (BNVA) | payer MEDICARE, SELFPAY | PROVIDERS: PCP Family Medicine Adult Medicine; Visit Provider Internal Medicine | DX: E03.9 Hypothyroidism, unspecified (principal); E06.3 Autoimmune thyroiditis; E78.5 Hyperlipidemia, unspecified; I25.118 Atherosclerotic heart disease of native coronary artery with other forms of angina pectoris; I48.91 Unspecified atrial fibrillation | CPT/HCPCS: 99214 ==

== ENCOUNTER → 2024-11-04 10:41 | Outpatient (BNVA) | payer MEDICARE, SELFPAY | PROVIDERS: PCP Family Medicine Adult Medicine; Visit Provider Internal Medicine | DX: E06.3 Autoimmune thyroiditis (principal) | CPT/HCPCS: 84439; 84443 ==

== ENCOUNTER 2024-12-04 15:14 | Emergency (ER) | payer MEDICARE, SELFPAY ==
[2024-12-04] VITALS (7 sets, daily range): BP systolic 93–174; BP diastolic 52–80; PULSE 56–68; RESP 17; TEMP 36.8; O2SAT 97–99; BMI 29.2
--- NOTE | 2024-12-04 15:16 | ECG_ITS ---
[facility] Test Date: 2024-12-04 Pat Name: Belkys Steiner Department: Room: Gender: Female Slitter Processed Film: : [id number] Requested By: Trip New Order Number: [id number] Lisandro MD: Jabari Hernandez M.D. Measurements Intervals [place] Rate: 60 P: 44 OR: 138 QRS: 18 QRSD: 79 T: 57 QT: 426 QTc: 428 Interpretive Statements SINUS RHYTHM WITH Frequent PACs LOW QRS VOLTAGE IN PRECORDIAL LEADS [QRS DEFLECTION < 1.0 mV IN CHEST LEADS] Compared to ECG 09/11/2023 05:39:29 Low QRS voltage now present T-wave abnormality no longer present Electronically Signed On 12-04-2024 21:11:46 CDT by Jabari Hernandez M.D. [email or web address]
--- NOTE | 2024-12-04 15:21 | ED_ITS ---
HPI - Syncope 2 General: Chief Complaint: Syncope Stated Complaint: syncope Time Seen by Provider: 12/04/24 15:15 Source: patient and EMS Mode of arrival: EMS Limitations: no limitations History of Present Illness: 69-year-old female states that she had a syncopal event just before arrival states she got a truck felt lightheaded and passed out for seconds. States she has had multiple syncopal events in the past states she feels fine currently she denies any pain anywhere denies headache or chest pain before after the event. Denies any injuries did not hit her head when she passed out Associated symptoms: Deny abdominal pain, chest pain, fever(s), headache(s) or nausea Related Data Home Medications ?Medication ?Instructions ?Recorded ?Confirmed metoprolol succinate 50 mg 25 mg PO DAILY 12/04/24 tablet,extended release 24 hr Previous Rx's ?Medication ?Instructions ?Recorded cholecalciferol (vitamin D3) 1,250 50,000 unit PO .alexi chepe #14 caps 03/17/24 mcg (50,000 unit) capsule losartan 100 mg tablet 100 mg PO DAILY hypertension #90 07/22/24 tabs apixaban 5 mg tablet (Eliquis) 5 mg PO BID blood thinn er #60 tabs 10/17/24 atorvastatin 40 mg tablet 40 mg PO DAILY #90 tabs 09/25 12/16 levothyroxine 112 mcg tablet 112 mcg PO DAILY #60 tabs 11/21/24 Allergies Allergy/AdvReac Type Severity Reaction Status Date / Time No Known Allergies Allergy Verified 09/20/24 15:02 Review of Systems 2 Const: Denies: fever(s), chills, body aches or change in appetite ENMT: Denies: throat pain or dental pain Card: Reports: syncope; Denies: chest pain Resp: Denies: dyspnea GI: Denies: abdominal pain, nausea, vomiting or diarrhea Musc: Denies: neck pain or back pain Skin/Breast: Denies: rash Neuro: Denies: headache(s) PFSH ED 2 PFSH: Medical History Screening for breast cancer Hyperlipidemia Eliot's disease Sleep apnea syndrome CAD (coronary artery disease), [place] coronary artery Anxiety and depression Hypothyroidism (acquired) HTN (hypertension) History of atrial fibrillation Palpitations Surgical History No pertinent past surgical history Family History Father CAD (coronary artery disease) Mother Breast cancer Social History Smoking and tobacco/nicotine status: never used tobacco/nicotine Alcohol intake: never Substance/Drug Use: never Physical Exam 2 Const: COMMON NORMALS: no acute distress, patient oriented x3 and healthy appearing HENMT: COMMON NORMALS: normocephalic and atraumatic HEAD & SCALP: n ormocephalic and atraumatic Eye: COMMON NORMALS: conjunctivae normal CONJUNCTIVA: Yes conjunctivae normal Neck/C-Spine: COMMON NORMALS: full ROM and supple Chest: COMMONS NORMALS: normal inspection of the chest and normal palpation of entire chest wall Resp: COMMON NORMALS: normal respiratory effort, No retractions, No use of accessory muscles and clear to auscultation bilaterally AUSCULTATION: clear to auscultation bilaterally Cardio: COMMON NORMALS: regular rate, regular rhythm and No murmurs present (Cardio) RATE: regular rate RHYTHM: regular rhythm GI: COMMON NORMALS: Normal to inspection, nondistended, normoactive bowel sounds present, Soft to palpation, non-tender and no masses PALPATION: Yes Soft to palpation Extremity: COMMON NORMALS: normal to inspection and full ROM Neuro: COMMON NORMALS: patient oriented x3, moves all extremities and no focal motor deficits Psych: COMMON NORMALS: mental status grossly normal, Normal thought process present and cooperative THOUGHT PROCESS: Normal thought process present Skin: COMMON NORMALS: no rashes or lesions noted and no wounds GENERAL SKIN EXAM: no rashes or lesions noted Course 2 Vital Signs: Vital signs: Vital Signs Temperature 98.2 F 12/04/24 15:16 Pulse Rate 60 12/04/24 18:02 Respiratory Rate 17 12/04/24 15:16 Blood Pressure 174/80 12/04/24 18:02 Pulse Oximetry 99 12/04/24 18:02 Oxygen Delivery Me thod Room Air 12/04/24 17:30 MDM - Syncope Medical Decision Making Patient presents after a syncopal event she has been well-appearing here blood work imaging is normal she is stable for discharge follow-up PCP return if worsening. Medical Records I reviewed the patient's medical records. Lab Data I reviewed the patient's lab results. 12/04/24 14:56 12/04/24 14:[address] 12/04/24 16:29 IMPRESSION: No acute intracranial abnormality. Laboratory Results WBC 7.96 10^3/uL (3.29-11.43) 12/04/24 14:56 RBC 4.31 10^6/uL (3.85-5.65) 12/04/24 14:56 Hgb 14.00 g/dL (11.27-16.99) 12/04/24 14:56 Hct 41.2 % (36-47) 12/04/24 14:56 MCV 95.6 fl (85-98) 12/04/24 14:56 MCH 32.5 pg (27-33) 12/04/24 14:56 MCHC 34.0 g/dL (30-55) 12/04/24 14:56 RDW 12.0 % (12.1-15.1) L 12/04/24 14:56 Plt Count 304 10^3/cmm (157-399) 12/04/24 14:56 MPV 11.7 fL (7.4-10.4) H 12/04/24 14:56 Neut % (Auto) 65.9 % 12/04/24 14:56 Lymph % (Auto) 23.2 % 12/04/24 14:56 [place] % (Auto) 8.4 % 12/04/24 14:56 Eos % (Auto) 1.5 % 12/04/24 14:56 Baso % (Auto) 0.9 % 12/04/24 14:56 Neut # (Auto) 5.24 10^3/uL (1.8-7.7) 12/04/24 14:56 Lymph # (Auto) 1.9 10^3/uL (0.8-4.8) 12/04/24 14:56 [place] # (Auto) 0.7 10^3/uL (0.2-0.9) 12/04/24 14:56 Eos # (Auto) 0.1 10^3/uL (0.0-0.8) 12/04/24 14:56 Baso # (Auto) 0.1 10^3/uL (0.0-0.1) 12/04/24 14:56 Nucleated RBC % (auto) 0 % 12/04/24 14:56 Nucleated RBCs # 0.0 /100WBC 12/04/24 14:56 Sodium 139 mmol/L (136-145) 12/04/24 14:56 Potassium 4.0 mmol/L (3.5-5.1) 12/04/24 14:56 Chloride 102 mmol/L (98-107) 12/04/24 14:56 Carbon Dioxide 23 mmol/L (22-29) 12/04/24 14:56 Anion Gap 18.0 (5-19) 12/04/24 14:56 BUN 20 mg/dL (8-23) 12/04/24 14:56 Creatinine 1.1 mg/dL (0.5-0.9) H 12/04/24 14:56 GFR Calculation 49.4 mL/min (90-130) L 12/04/24 14:56 Glucose 117 mg/dL (65-115) H 12/04/24 14:56 Calculated Osmolality 292 mOsm/kg (285-295) 12/04/24 14:56 Calcium 9.3 mg/dL (8.5-10.5) 12/04/24 14:56 Total Bilirubin 0.8 mg/dL (0.15-1.2) 12/04/24 14:56 AST 17 U/L (0-32) 12/04/24 14:56 ALT 11 U/L (0-33) 12/04/24 14:56 Alkaline Phosphatase 127 U/L (35-105) H 12/04/24 14:56 Total Protein 7.7 g/dL (6.6-8.7) 12/04/24 14:56 Albumin 4.5 g/dL (3.5-5.2) 12/04/24 14:56 Globulin 3.2 g/dL (1.3-4.6) 12/04/24 14:56 TSH 58.57 uIU/mL (0.27-4.20) H 12/04/24 14:56 All radiology interpretation(s) finalized by discharge EKG Data EKG 1: I personally reviewed and interpreted this EKG as follows: EKG interpretation date: 12/04/24 EKG interpretation time: 15:17 Interpretation: nsr hr [address] elevation qrs 79 qtc 427 Discharge Plan Discharge Patient Disposition: Home Clinical Impression: Syncope Condition: Stable Prescriptions: No Action cholecalciferol (vitamin D3) 1,250 mcg (50,000 unit) capsule 50,000 unit PO .weekly Qty: 14 3RF losartan 100 mg tablet 100 mg PO DAILY Qty: 90 3RF Eliquis 5 mg tablet 5 mg PO BID Qty: 60 5RF atorvastatin 40 mg tablet 40 mg PO DAILY Qty: 90 1RF levothyroxine 112 mcg tablet 112 mcg PO DAILY Qty: 60 1RF metoprolol succinate 50 mg tablet extended release 24 hr 25 mg PO DAILY Discharge Orders: Discharge ED (Routine); Ordered 12/04/24 Ordered By: Trip New Referrals: Teo Hunter MD [Physician] - 4-7 days Discharge Diet: Advance as tolerated Discharge Activity: Resume usual activity Patient Instructions: Syncope (ED) Print Language: Senegalese Coding Level of Care Code ED Thread Trimmer for Duran Shaikh
[2024-12-04 15:34] LABS: Basophils # 0.1 10^3/uL (0.0-0.1); Basophils % 0.9 %; Eosinophils # 0.1 10^3/uL (0.0-0.8); Eosinophils % 1.5 %; Hematocrit 41.2 % (36-47); Lymphocytes # 1.9 10^3/uL (0.8-4.8); Lymphocytes % 23.2 %; Mean Corpuscular Hemoglobin 32.5 pg (27-33); Mean Corpuscular Volume 95.6 fl (85-98); Mean Platelet Volume 11.7 fL (7.4-10.4); Monocytes # 0.7 10^3/uL (0.2-0.9); Monocytes % 8.4 %; Neutrophils # 5.24 10^3/uL (1.8-7.7); Neutrophils % 65.9 %; Nucleated Red Blood Cells % 0 %; Platelet Count 304 10^3/cmm (157-399); Red Blood Count 4.31 10^6/uL (3.85-5.65); White Blood Count 7.96 10^3/uL (3.29-11.43)
[2024-12-04 16:13] LABS: Alanine Aminotransferase 11 U/L (0-33); Albumin Level 4.5 g/dL (3.5-5.2); Alkaline Phosphatase 127 U/L (35-105); Aspartate Amino Transferase 17 U/L (0-32); Blood Urea Nitrogen 20 mg/dL (8-23); Calcium 9.3 mg/dL (8.5-10.5); Carbon Dioxide 23 mmol/L (22-29); Chloride 102 mmol/L (98-107); Creatinine Clr Calc Pharmacy 49.1952; Globulin 3.2 g/dL (1.3-4.6); Glomerular Filtration Rate 49.4 mL/min (90-130); Glucose 117 mg/dL (65-115); Osmolality Calculated 292 mOsm/kg (285-295); Sodium 139 mmol/L (136-145); Thyroid Stimulating Hormone 58.57 uIU/mL (0.27-4.20); Total Bilirubin 0.8 mg/dL (0.15-1.2); Total Protein 7.7 g/dL (6.6-8.7)
--- NOTE | 2024-12-04 16:29 | CTR_ITS ---
PROCEDURE INFORMATION: Exam: CT Head Without Contrast Exam date and time: 12/04/2024 4:39 PM Age: 69 years old Clinical indication: Syncope and collapse TECHNIQUE: Imaging protocol: Computed tomography of the head without contrast. Radiation optimization: All CT scans at this facility use at least one of these dose optimization techniques: automated exposure control; mA and/or kV adjustment per patient size (includes targeted exams where dose is matched to clinical indication); or iterative reconstruction. COMPARISON: MR head wo/w con [id number] 04/12/2024 3:26 PM RADIATION DOSE METRICS: Total DLP (mGy-cm): 1054.98 FINDINGS: Brain: No hemorrhage. No edema. Advanced diffuse cerebral atrophy and mild sequela of chronic small vessel ischemic disease. No mass effect. Cerebral ventricles: No ventriculomegaly. Paranasal sinuses: Visualized sinuses are unremarkable. No fluid levels. Mastoid air cells: Visualized mastoid air cells are well aerated. Bones: Unremarkable. No acute fracture. Soft tissues: Unremarkable. CT/CT head wo con* [id number] IMPRESSION: No acute intracranial abnormality.
[2024-12-04] MEDS: sodium chloride 0.9% 1,000 ML 999 ML IV (16:48)
== END 2024-12-04 18:03 | disposition home or self-care (01) ==
PROVIDERS: Emergency Provider Emergency Medicine
DX: R55 Syncope and collapse (principal); Z79.01 Long term (current) use of anticoagulants; I25.10 Atherosclerotic heart disease of native coronary artery without angina pectoris; I10 Essential (primary) hypertension; E78.5 Hyperlipidemia, unspecified
CPT/HCPCS: 70450; 80053; 84443; 85025; 93005; 99284; J7030

== ENCOUNTER 2024-12-17 18:20 | Emergency (ER) | payer MEDICARE, SELFPAY ==
[2024-12-17 18:32] VITALS: BP 106/69; PULSE 66; RESP 16; TEMP 36.7; O2SAT 100; BMI 27.4
--- NOTE | 2024-12-17 19:36 | ED_ITS ---
HPI - Nausea/Vomiting/Diarrhea 2 General: Chief complaint: Nausea/Vomiting/Diarrhea Stated complaint: N/V/D Time Seen by Provider: 12/17/24 18:40 History of Present Illness: 69-year-old female comes in today with n ausea vomiting diarrhea x 2 days. Patient reports eating a bagel this morning but since then has not been able to hold any more food down and has had several episodes of vomiting. Patient appears mildly unwell but not toxic. Related Data Home Medications ?Medication ?Instructions ?Recorded ?Confirmed metoprolol succinate 50 mg 25 mg PO DAILY 12/04/24 tablet,extended release 24 hr Previous Rx's ?Medication ?Instructions ?Recorded cholecalciferol (vitamin D3) 1,250 50,000 unit PO .alexi mo #14 caps 03/17/24 mcg (50,000 unit) capsule losartan 100 mg tablet 100 mg PO DAILY hypertension #90 07/22/24 tabs apixaban 5 mg tablet (Eliquis) 5 mg PO BID blood thinn er #60 tabs 10/17/24 atorvastatin 40 mg tablet 40 mg PO DAILY #90 tabs 09/25 12/16 levothyroxine 112 mcg tablet 112 mcg PO DAILY #60 tabs 11/21/24 ondansetron HCl 4 mg tablet 4 mg PO Q8H PRN nausea and 12/17/24 vomiting #10 tabs Allergies Allergy/AdvReac Type Severity Reaction Status Date / Time No Known Allergies Allergy Verified 09/20/24 15:02 Review of Systems 2 General: Reports: 10 or more systems reviewed and unremarkable except in HPI and below PFSH ED 2 PFSH: Medical History Screening for breast cancer Hyperlipidemia Eliot's disease Sleep apnea syndrome CAD (coronary artery disease), [place] coronary artery Anxiety and depression Hypothyroidism (acquired) HTN (hypertension) History of atrial fibrillation Palpitations Surgical History No pertinent past surgical history Family History Father CAD (coronary artery disease) Mother Breast cancer Social History Smoking and tobacco/nicotine status: never used tobacco/nicotine Alcohol intake: never Substance/Drug Use: never Physical Exam 2 Const: COMMON NORMALS: alert HENMT: COMMON NORMALS: normocephalic HEAD & SCALP: normocephalic MOUTH: other (Slightly dry) Neck/C-Spine: COMMON NORMALS: full ROM Chest: COMMONS NORMALS: normal inspection of the chest Resp: COMMON NORMALS: normal respiratory effort Cardio: COMMON NORMALS: regular rate and regular rhythm RATE: regular rate RHYTHM: regular rhythm GI: COMMON NORMALS: non-tender : COMMON NORMALS: Yes no CVA tenderness BLADDER/KIDNEY EXAM: Yes no CVA tenderness Back/Pelvis: COMMON NORMALS: no CVA tenderness Extremity: COMMON NORMALS: no pedal edema Neuro: SENSORIUM/ORIENTATION: Yes alert Skin: COMMON NORMALS: turgor normal GENERAL SKIN EXAM: turgor normal Course 2 Vital Signs: Vital signs: Vital Signs Temperature 98.1 F 12/17/24 18:32 Pulse Rate 64 12/17/24 20:53 Respiratory Rate 16 12/17/24 18:32 Blood Pressure 144/77 12/17/24 20:53 Pulse Oximetry 99 12/17/24 20:53 Oxygen Delivery Me thod Room Air 12/17/24 20:53 MDM - Nausea/Vomiting/Diarrhea Medical Decision Making 69-year-old female comes in today with illness x 2 days. On exam patient appears mildly unwell but nontoxic. Abdomen soft and nontender. Skin is warm and dry. Oral mucosa is slightly dry. Skin turgor is normal. No edema is noted in extremities. Heart rate is regular. Differential diagnosis includes but not limited to gastroenteritis, dehydration, urinary tract infection, gallbladder disease, pancreatitis. Lab Data 12/17/24 20:01 12/17/24 20:01 Laboratory Results WBC 4.71 10^3/uL (3.29-11.43) 12/17/24 20:01 RBC 4.14 10^6/uL (3.85-5.65) 12/17/24 20:01 Hgb 13.40 g/dL (11.27-16.99) 12/17/24 20:01 Hct 39.8 % (36-47) 12/17/24 20:01 MCV 96.1 fl (85-98) 12/17/24 20:01 MCH 32.4 pg (27-33) 12/17/24 20:01 MCHC 33.7 g/dL (30-55) 12/17/24 20:01 RDW 13.0 % (12.1-15.1) 12/17/24 20:01 Plt Count 176 10^3/cmm (157-399) 12/17/24 20:01 MPV 11.0 fL (7.4-10.4) H 12/17/24 20:01 Neut % (Auto) 67.8 % 12/17/24 20:01 Lymph % (Auto) 17.6 % 12/17/24 20:01 [place] % (Auto) 11.7 % 12/17/24 20:01 Eos % (Auto) 2.3 % 12/17/24 20:01 Baso % (Auto) 0.4 % 12/17/24 20:01 Neut # (Auto) 3.19 10^3/uL (1.8-7.7) 12/17/24 20:01 Lymph # (Auto) 0.8 10^3/uL (0.8-4.8) 12/17/24 20:01 [place] # (Auto) 0.6 10^3/uL (0.2-0.9) 12/17/24 20:01 Eos # (Auto) 0.1 10^3/uL (0.0-0.8) 12/17/24 20:01 Baso # (Auto) 0.0 10^3/uL (0.0-0.1) 12/17/24 20:01 Nucleated RBC % (auto) 0 % 12/17/24 20: Nucleated RBCs # 0.0 /100WBC 12/17/24 20:01 Sodium 136 mmol/L (136-145) 12/17/24 20:01 Potassium 3.4 mmol/L (3.5-5.1) L 12/17/24 20:01 Chloride 104 mmol/L (98-107) 12/17/24 20:01 Carbon Dioxide 21 mmol/L (22-29) L 12/17/24 20:01 Anion Gap 14.4 (5-19) 12/17/24 20:01 BUN 13 mg/dL (8-23) 12/17/24 20:01 Creatinine 0.8 mg/dL (0.5-0.9) 12/17/24 20:01 GFR Calculation 71.3 mL/min (90-130) L 12/17/24 20:01 Glucose 96 mg/dL (65-115) 12/17/24 20:01 Calculated Osmolality 282 mOsm/kg (285-295) L 12/17/24 20:01 Calcium 8.8 mg/dL (8.5-10.5) 12/17/24 20:01 Total Bilirubin 0.9 mg/dL (0.15-1.2) 12/17/24 20:01 AST 17 U/L (0-32) 12/17/24 20:01 ALT 11 U/L (0-33) 12/17/24 20:01 Alkaline Phosphatase 99 U/L (35-105) 12/17/24 20:01 Total Protein 7.0 g/dL (6.6-8.7) 12/17/24 20:01 Albumin 4.1 g/dL (3.5-5.2) 12/17/24 20:01 Globulin 2.9 g/dL (1.3-4.6) 12/17/24 20:01 Lipase 51 U/L (13-60) 12/17/24 20:01 Influenza A (PCR) Negative (Negative) 12/17/24 19:48 Influenza Type B (PCR) Negative (Negative) 12/17/24 19:48 RSV (PCR) Negative (Negative) 12/17/24 19:48 SARS-CoV-2 (PCR) Negative (Negative) 12/17/24 19:48 No radiology studies performed this visit Discharge Plan Discharge Patient Disposition: Home Clinical Impression: Gastroenteritis Condition: Stable Prescriptions: New ondansetron HCl 4 mg tablet 4 mg PO Q8H PRN (Reason: nausea and vomiting) Qty: 10 0RF No Action cholecalciferol (vitamin D3) 1,250 mcg (50,000 unit) capsule 50,000 unit PO .weekly Qty: 14 3RF losartan 100 mg tablet 100 mg PO DAILY Qty: 90 3RF Eliquis 5 mg tablet 5 mg PO BID Qty: 60 5RF atorvastatin 40 mg tablet 40 mg PO DAILY Qty: 90 1RF levothyroxine 112 mcg tablet 112 mcg PO DAILY Qty: 60 1RF metoprolol succinate 50 mg tablet extended release 24 hr 25 mg PO DAILY Discharge Orders: Discharge ED (Routine); Ordered 12/17/24 Ordered By: Paul Suresh Discharge Diet: Usual diet Discharge Activity: Increase activity as tolerated Patient Instructions: Gastroenteritis (ED) Activity Restrictions/Additional Instructions: Home and rest. Drink frequent sips of fluid. Use ondansetron to help with nausea and vomiting. Be sure to drink 8 ounces of electrolyte solution after each diarrhea stool. Otherwise drink frequent sips of fluids you enjoy. Follow-up with primary care as needed. Return to ED for worsening symptoms such as fever greater than 101, blood in vomit or stool, or severe abdominal pain. Print Language: Setswana Coding Level of Care Code ED Firefighting Equipment Specialist for Duran Shaikh
[2024-12-17 20:06] LABS: Basophils % 0.4 %; Eosinophils # 0.1 10^3/uL (0.0-0.8); Eosinophils % 2.3 %; Hematocrit 39.8 % (36-47); Lymphocytes # 0.8 10^3/uL (0.8-4.8); Lymphocytes % 17.6 %; Mean Corpuscular HGB Conc 33.7 g/dL (30-55); Mean Corpuscular Hemoglobin 32.4 pg (27-33); Mean Corpuscular Volume 96.1 fl (85-98); Monocytes # 0.6 10^3/uL (0.2-0.9); Monocytes % 11.7 %; Neutrophils # 3.19 10^3/uL (1.8-7.7); Neutrophils % 67.8 %; Nucleated Red Blood Cells % 0 %; Platelet Count 176 10^3/cmm (157-399); Red Blood Count 4.14 10^6/uL (3.85-5.65); White Blood Count 4.71 10^3/uL (3.29-11.43)
[2024-12-17 20:23] LABS: Alanine Aminotransferase 11 U/L (0-33); Albumin Level 4.1 g/dL (3.5-5.2); Alkaline Phosphatase 99 U/L (35-105); Anion Gap 14.4 (5-19); Aspartate Amino Transferase 17 U/L (0-32); Blood Urea Nitrogen 13 mg/dL (8-23); Calcium 8.8 mg/dL (8.5-10.5); Carbon Dioxide 21 mmol/L (22-29); Chloride 104 mmol/L (98-107); Creatinine Clr Calc Pharmacy 65.7156; Globulin 2.9 g/dL (1.3-4.6); Glomerular Filtration Rate 71.3 mL/min (90-130); Glucose 96 mg/dL (65-115); Lipase 51 U/L (13-60); Osmolality Calculated 282 mOsm/kg (285-295); Potassium 3.4 mmol/L (3.5-5.1); Sodium 136 mmol/L (136-145); Total Bilirubin 0.9 mg/dL (0.15-1.2)
[2024-12-17 20:26] LABS: Influenza A NEGATIVE (Negative); Influenza B NEGATIVE (Negative); Respiratory Syncytial Virus Ce NEGATIVE (Negative); SARS-CoV-2 PCR NEGATIVE (Negative)
[2024-12-17] MEDS: lactated ringers 1,000 ML 999 ML IV (20:52)
[2024-12-17 20:53] VITALS: BP 144/77; PULSE 64; O2SAT 99
[2024-12-17] MEDS: ondansetron 2 mg/ML SDV 2 mL 4 MG IVP (20:53)
== END 2024-12-17 22:20 | disposition home or self-care (01) ==
PROVIDERS: Emergency Provider Nurse Practitioner Family
DX: K52.9 Noninfective gastroenteritis and colitis, unspecified (principal); Z79.01 Long term (current) use of anticoagulants; Z11.52 Encounter for screening for COVID-19; I25.10 Atherosclerotic heart disease of native coronary artery without angina pectoris; I10 Essential (primary) hypertension; E78.5 Hyperlipidemia, unspecified
CPT/HCPCS: 36415; 80053; 83690; 85025; 87637; 96374; 99284; J2405; J7120

== ENCOUNTER → 2025-01-02 14:57 | Outpatient (BNVA) | payer MEDICARE, SELFPAY | PROVIDERS: Visit Provider Internal Medicine Cardiovascular Disease | DX: I48.91 Unspecified atrial fibrillation (principal); Z79.01 Long term (current) use of anticoagulants; I10 Essential (primary) hypertension | CPT/HCPCS: 99214 ==

== ENCOUNTER → 2025-01-18 12:10 | Outpatient (BNVA) | payer MEDICARE, SELFPAY | DX: E06.3 Autoimmune thyroiditis (principal) | CPT/HCPCS: 84439; 84443 ==

== ENCOUNTER → 2025-01-19 09:29 | Outpatient (BNVA) | payer MEDICARE, SELFPAY | PROVIDERS: Visit Provider Internal Medicine | DX: E06.3 Autoimmune thyroiditis (principal); E03.9 Hypothyroidism, unspecified; E78.5 Hyperlipidemia, unspecified | CPT/HCPCS: 99214 ==

== ENCOUNTER 2025-06-05 14:08 | Outpatient (CLI) | payer MEDICARE, SELFPAY ==
[2025-06-05 15:34] LABS: Free T4 Free Thyroxine 1.05 ng/dL (0.82-1.77); Thyroid Stimulating Hormone 13.11 uIU/mL (0.27-4.20)
== END 2025-06-05 14:09 | disposition home or self-care (01) ==
PROVIDERS: Visit Provider Internal Medicine
DX: E06.3 Autoimmune thyroiditis (principal)
CPT/HCPCS: 36415; 84439; 84443

== ENCOUNTER → 2025-06-06 10:23 | Outpatient (BNVA) | payer MEDICARE, SELFPAY | PROVIDERS: Visit Provider Internal Medicine | DX: E03.8 Other specified hypothyroidism (principal); E06.3 Autoimmune thyroiditis; E78.5 Hyperlipidemia, unspecified; I25.119 Atherosclerotic heart disease of native coronary artery with unspecified angina pectoris; I48.91 Unspecified atrial fibrillation | CPT/HCPCS: 99214 ==

== ENCOUNTER → 2025-07-03 16:18 | Outpatient (BNVA) | payer MEDICARE, SELFPAY | DX: I48.91 Unspecified atrial fibrillation (principal) | CPT/HCPCS: 80053; 83540; 85025 ==

== ENCOUNTER 2025-07-05 15:02 | Emergency (ER) | payer MEDICARE, SELFPAY ==
[2025-07-05 15:03] VITALS: BP 118/78; PULSE 67; RESP 18; TEMP 36.6; O2SAT 95
--- NOTE | 2025-07-05 15:07 | XR_ITS ---
WS: [id number] Exam: XR chest 1V portable [id number] Date/Time of Exam: 07/05/2025 3:16 PM Reason For Exam: syncop[e Comparison 09/06/2024. Lungs are clear and fully inflated. Normal cardiomediastinal silhouette for technique. No pleural effusions. Unremarkable bony structures. XR/XR chest 1V portable [id number] IMPRESSION: 1. No acute cardiopulmonary finding.
--- NOTE | 2025-07-05 15:10 | ED_ITS ---
HPI - Syncope 2 General: Chief Complaint: Syncope Stated Complaint: syncope History of Present Illness: 70-year-old female with a history of hyp othyroidism, chronic anticoagulation on Eliquis, hypertension, atrial fibrillation, coronary artery disease and obstructive sleep apnea who presents to the emergency room after having had a syncopal episode. She has been feeling fatigued recently she had gone to her PCP today and when she got there she suddenly passed out. Very brief and she has recovered completely. Related Data Home Medications ?Medication ?Instructions ?Recorded ?Confirmed metoprolol succinate 50 mg 25 mg PO DAILY 12/04/2408/17 tablet,extended release 24 hr atorvastatin 40 mg tablet 40 mg PO QPM 07/05/25 levothyroxine 125 mcg tablet 125 mcg PO QAM 07/05/25 1 09/04/24 (Unithroid) Previous Rx's ?Medication ?Instructions ?Recorded losartan 100 mg tablet 100 mg PO DAILY hypertension #90 07/22/24 tabs ondansetron HCl 4 mg tablet 4 mg PO Q8H PRN nausea and 12/17/24 vomiting #10 tabs cholecalciferol (vitamin D3) 1,250 50,000 unit PO .wee kly #14 caps 03/27/25 mcg (50,000 unit) capsule sertraline 100 mg tablet 100 mg PO DAILY mental healt h #90 06/15/25 tabs apixaban 5 mg tablet (Eliquis) 5 mg PO BID blood thinn er #60 tabs 07/03/25 aripiprazole 5 mg tablet (Abilify) 5 mg PO DAILY #30 t abs 07/03/25 Allergies Allergy/AdvReac Type Severity Reaction Status Date / Time No Known Allergies Allergy Verified 07/05/25 14:14 Review of Systems 2 Narrative: Constitutional symptoms: Negative except as documented in HPI. Skin symptoms: Negative except as documented in HPI. Eye symptoms: Negative except as documented in HPI. ENMT symptoms: Negative except as documented in HPI. Respiratory symptoms: Negative except as documented in HPI. Cardiovascular symptoms: Negative except as documented in HPI. Gastrointestinal symptoms: Negative except as documented in HPI. Genitourinary symptoms: Negative except as documented in HPI. Musculoskeletal symptoms: Negative except as documented in HPI. Neurologic symptoms: Negative except as documented in HPI. Psychiatric symptoms: Negative except as documented in HPI. Endocrine symptoms: Negative except as documented in HPI. PFSH ED 2 PFSH: Medical History (Updated 07/05/25 @ 17:40 by Radha Corcoran MD) Screening for breast cancer Hyperlipidemia Eliot's disease Obstructive sleep apnea syndrome CAD (coronary artery disease), sycuan coronary artery Anxiety and depression Hypothyroidism (acquired) HTN (hypertension) History of atrial fibrillation Palpitations Surgical History (Updated 07/04/25 @ 13:04 by Lizeth Keller NP) No pertinent past surgical history Family History Father CAD (coronary artery disease) Mother Breast cancer Social History Smoking and tobacco/nicotine status: never used tobacco/nicotine Alcohol intake: never Substance/Drug Use: never Physical Exam 2 Narrative: EXAM NARRATIVE: General: Alert, no acute distress. Skin: Warm, dry. Head: Normocephalic, atraumatic. Neck: Supple, trachea midline. Eye: Extraocular movements are intact. Ears, nose, mouth and throat: mucosa moist. Cardiovascular: Regular, Normal peripheral perfusion. Respiratory: Lungs are clear to auscultation, respirations are non-labored, breath sounds are equal, Symmetrical chest wall expansion. Gastrointestinal: Soft, Nontender, Non distended Musculoskeletal: Normal ROM, no deformity. Neurological: Alert and oriented, No focal neurological deficit observed. Psychiatric: Cooperative, appropriate mood & affect. Course 2 Vital Signs: Vital signs: Vital Signs Temperature 97.8 F 07/05/25 15:03 Pulse Rate 63 07/05/25 18:45 Respiratory Rate 18 07/05/25 15:03 Blood Pressure 204/101 07/05/25 19:19 Pulse Oximetry 100 07/05/25 19:19 Oxygen Delivery Me thod Room Air 07/05/25 19:19 MDM - Syncope Medical Decision Making Medical decision making Patient's reason for coming to the emergency room: Social determinants: Retired I reviewed the patient's medical record. 70-year-old female with a history of hypothyroidism, chronic anticoagulation on Eliquis, hypertension, atrial fibrillation, coronary artery disease and obstructive sleep apnea I reviewed the patient's current home meds Patient is anticoagulated on Eliquis. Alternate historians: Son arrived later. At the time I was going to discharge she informed me that she had had NPH and had had a drain placed in her brain before and he was concerned about this so I did order a CT scan at that time Differential diagnosis including but not limited to and based on the above HPI, review of systems and physical exam in this patient with syncope: Vasovagal, orthostatics hypotension, cardiac dysrhythmia, myocardial infarction, infection and hypotension, Orders placed to evaluate differential diagnosis based on the above differential, HPI and physical exam EKG: Time 1707. Rate 64. Normal sinus rhythm, No ST-T changes, no ectopy, normal NC & QRS intervals, This was reviewed and interpreted by myself the ER physician at 1713. Chest x-ray: No acute process. No infiltrate. No pneumothorax. This was reviewed and interpreted by myself the emergency room physician. I also reviewed the radiology report. Lab Review: Laboratory results were reviewed and interpreted by myself the emergency room physician. No leukocytosis. No anemia. No renal failure. Urinalysis is negative for infection. Serial troponins are negative. CT of the head: NPH without change from earlier this year. This was reviewed and interpreted by myself the emergency room physician. I also reviewed the radiology report. Assessment of risk: Level of risk: Hospitalization considerations: Reexamination: Patient remained stable. No increased work of breathing. No altered mental status. No focal motor deficits. Consultation: Spoke with Dr. Valdez with neurosurgery at [facility]. He reviewed the old films and records. Unclear why there was not follow-up but it had not been done. He had been felt like a lumbar drain had been done and this did not seem to help her symptoms a lot. He gave me a number which I provided to the family and they will call tomorrow for follow-up Assessment and plan: Syncope - Discharged home - Discussed plan with patient. Answered any questions. - Evaluation and treatment of this problem were appropriate in the emergency setting. Lab Data 07/05/25 15:00 07/05/25 15:00 Radiology Impressions Chest X-Ray 07/05/25 15:07 IMPRESSION: 1. No acute cardiopulmonary finding. Head CT 07/05/25 17:52 IMPRESSION: 1. Ventriculomegaly or hydrocephalus consistent with normal pressure hydrocephalus as noted clinically. Ventricular dilatation appears similar in appearance to prior exam 12/04/2024. 2. No acute findings otherwise. Laboratory Results WBC 7.77 10^3/uL (3.29-11.43) 07/05/25 15:00 RBC 4.26 10^6/uL (3.85-5.65) 07/05/25 15:00 Hgb 14.00 g/dL (11.27-16.99) 07/05/25 15:00 Hct 39.7 % (36-47) 07/05/25 15:00 MCV 93.2 fl (85-98) 07/05/25 15:00 MCH 32.9 pg (27-33) 07/05/25 15:00 MCHC 35.3 g/dL (30-55) 07/05/25 15:00 RDW 12.9 % (12.1-15.1) 07/05/25 15:00 Plt Count 275 10^3/cmm (157-399) 07/05/25 15:00 MPV 11.5 fL (7.4-10.4) H 07/05/25 15:00 Neut % (Auto) 65.1 % 07/05/25 15:00 Lymph % (Auto) 22.0 % 07/05/25 15:00 [place] % (Auto) 10.7 % 07/05/25 15:00 Eos % (Auto) 1.3 % 07/05/25 15:00 Baso % (Auto) 0.8 % 07/05/25 15:00 Neut # (Auto) 5.06 10^3/uL (1.8-7.7) 07/05/25 15:00 Lymph # (Auto) 1.7 10^3/uL (0.8-4.8) 07/05/25 15:00 [place] # (Auto) 0.8 10^3/uL (0.2-0.9) 07/05/25 15:00 Eos # (Auto) 0.1 10^3/uL (0.0-0.8) 07/05/25 15:00 Baso # (Auto) 0.1 10^3/uL (0.0-0.1) 07/05/25 15:00 Nucleated RBC % (auto) 0 % 07/05/25 15:00 Nucleated RBCs # 0.0 /100WBC 07/05/25 15:00 PT 15.30 SECONDS (12.1-14.9) H 07/05/25 15:00 INR 1.13 (0.8-1.2) 07/05/25 15:00 APTT 31.7 SECONDS (23.9-36.7) 07/05/25 15:00 Sodium 139 mmol/L (136-145) 07/05/25 15:00 Potassium 4.3 mmol/L (3.5-5.1) 07/05/25 15:00 Chloride 104 mmol/L (98-107) 07/05/25 15:00 Carbon Dioxide 22 mmol/L (22-29) 07/05/25 15:00 Anion Gap 17.3 (5-19) 07/05/25 15:00 BUN 21 mg/dL (8-23) 07/05/25 15:00 Creatinine 1.0 mg/dL (0.5-0.9) H 07/05/25 15:00 GFR Calculation 55.0 mL/min (90-130) L 07/05/25 15:00 Glucose 101 mg/dL (65-115) 07/05/25 15:00 Calculated Osmolality 291 mOsm/kg (285-295) 07/05/25 15:00 Lactic Acid 1.3 mmol/L (0.5-2.2) 07/05/25 15:00 Calcium 9.6 mg/dL (8.5-10.5) 07/05/25 15:00 Total Bilirubin 0.9 mg/dL (0.15-1.2) 07/05/25 15:00 AST 16 U/L (0-32) 07/05/25 15:00 ALT 15 U/L (0-33) 07/05/25 15:00 Alkaline Phosphatase 142 U/L (35-105) H 07/05/25 15:00 Troponin T Baseline < 6 ng/L (0-10) 07/05/25 15:00 Troponin T 120 Minute < 6.0 ng/L (0-10) 07/05/25 16:58 Delta Troponin T 0 ABS# (0-10) 07/05/25 16:58 NT-Pro-B Natriuret Pep 199 pg/mL (0-125) H 07/05/25 15:00 Total Protein 7.3 g/dL (6.6-8.7) 07/05/25 15:00 Albumin 4.6 g/dL (3.5-5.2) 07/05/25 15:00 Globulin 2.7 g/dL (1.3-4.6) 07/05/25 15:00 Lipase 74 U/L (13-60) H 07/05/25 15:00 Urine Color Yellow (Yellow) 07/05/25 16:45 Urine Appearance Clear (CLEAR) 07/05/25 16:45 Urine pH TNP 07/05/25 16:45 Ur Specific [place]vel Switch TNP 07/05/25 16:45 Urine Protein TNP 07/05/25 16:45 Urine Glucose (UA) TNP 07/05/25 16:45 Urine Ketones TNP 07/05/25 16:45 Urine Blood TNP 07/05/25 16:45 Urine Nitrate TNP 07/05/25 16:45 Urine Bilirubin TNP 07/05/25 16:45 Urine Urobilinogen TNP 07/05/25 16:45 Ur Leukocyte Esterase TNP 07/05/25 16:45 Urine RBC None /hpf (0-2) 07/05/25 16:45 Urine WBC Rare /hpf (0-5) 07/05/25 16:45 Ur Squamous Epith Cells 0-4 /hpf (0-5) H 07/05/25 16:45 Amorphous Sediment Not Reportable 07/05/25 16:45 Urine Bacteria None /hpf (NONE) 07/05/25 16:45 All radiology interpretation(s) finalized by discharge Discharge Plan Discharge Patient Disposition: Home Clinical Impression: Syncope Condition: Stable Prescriptions: No Action Eliquis 5 mg tablet 5 mg PO BID Qty: 60 5RF aripiprazole [Abilify] 5 mg tablet 5 mg PO DAILY Qty: 30 0RF losartan 100 mg tablet 100 mg PO DAILY Qty: 90 3RF cholecalciferol (vitamin D3) 1,250 mcg (50,000 unit) capsule 50,000 unit PO .weekly Qty: 14 3RF Rx Instructions: sertraline 100 mg tablet 100 mg PO DAILY Qty: 90 0RF metoprolol succinate 50 mg tablet extended release 24 hr 25 mg PO DAILY ondansetron HCl 4 mg tablet 4 mg PO Q8H PRN (Reason: nausea and vomiting) Qty: 10 0RF atorvastatin 40 mg tablet 40 mg PO QPM levothyroxine [Unithroid] 125 mcg tablet 125 mcg PO QAM Discharge Orders: Discharge ED (Routine); Ordered 07/05/25 Ordered By: Radha Corcoran Referrals: Lizeth Keller NP [Primary Care Provider, Family Practice] Discharge Diet: Usual diet Discharge Activity: Increase activity as tolerated Patient Instructions: Syncope (ED), Opioid Safety, Pain Management, Patient Portal & Chris Instructions Activity Restrictions/Additional Instructions: Please call for appointment with Dr. Walter the neurosurgeon that did the procedure on you earlier. The number they have provided is [phone] Thank you for choosing [facility] for your healthcare needs today. You have been screened and evaluated and felt safe for discharge. Health conditions do change or evolve sometimes and as such it is important that you follow up with your Primary Doctor to be re checked, 3-5 days is a general good time frame for follow up. You are always welcome to return to the ED for re assessment if your symptoms are worsening or you have new concerns Print Language: Serbian Coding Level of Care Code ED Family Therapist for Duran Shaikh
--- OUTSIDE RECORDS SUMMARY | 2025-07-05 15:10 | XMS_ITS | Clinical Summary ---
Author Organization [facility] Address [address] [place] [address] Care Team Providers Care Powertrain Calibration Engineer Name Role Phone Unavailable Primary Care Provider Unavailabl e Allergies No known active allergies Medications atorvastatin (LIPITOR) 40 mg tablet Take 40 mg by mouth daily at bedtime. Active cholecalciferol 1,250 mcg (50,000 unit) Capsule Take 1 Capsule by mouth every 7 days. 11/22/2024 Active cyanocobalamin (VITAMIN B-12) 500 mcg tablet Take 1,000 mcg by mouth daily. Active levothyroxine 112 mcg tablet Take 1 Tablet by mouth daily. Active losartan (COZAAR) 50 mg tablet Take 100 mg by mouth daily. Active sertraline (ZOLOFT) 50 mg tablet Take 100 mg by mouth daily at bedtime. 10/15/2023 Active ondansetron (ZOFRAN) 4 mg Tablet Take by mouth every 6 hours as needed. 12/18/2024 Active POTASSIUM GLUCONATE ORAL Take 99 mg by mouth daily. Active metoprolol tartrate (LOPRESSOR) 25 mg tablet Take 25 mg by mouth daily at bedtime. Active ARIPiprazole (ABILIFY) 5 mg tablet Take 5 mg by mouth daily at bedtime. Active apixaban (ELIQUIS) 5 mg tablet Take 1 Tablet (5 mg) by mouth 2 times daily. 03/09/2025 Active acetaminophen (TYLENOL) 325 mg tablet Take 2 Tablets (650 mg) by mouth every 6 hours as needed for Other (See Comment) (See admin instructions ). 03/09/2025 Active Active Problems Problem Noted Date Diagnosed Date Gait difficulty 03/06/2025 Memory deficit 03/06/2025 Encounters Date Type Department Care Team Description 07/03/2025 Telephone [facility] [address] [place] [address] Nhi Guerrero, CHARITY Follow Up 06/20/2025 External Device Data STL ABSTRACTION Provider, Abstract 06/20/2025 External Device Data STL ABSTRACTION Provider, Abstract 05/16/2025 External Device Data STL ABSTRACTION Provider, Abstract 05/16/2025 External Device Data STL ABSTRACTION Provider, Abstract 05/09/2025 External Device Data STL ABSTRACTION Provider, Abstract 05/02/2025 [facility] Neurosurgery [address] [place] [address] Nhi Guerrero, CHARITY 04/25/2025 External Device Data STL ABSTRACTION Provider, Abstract 04/12/2025 External Device Data STL ABSTRACTION Provider, Abstract 04/11/2025 External Device Data STL ABSTRACTION Provider, Abstract 04/11/2025 External Device Data STL ABSTRACTION Provider, Abstract from Last 3 Months Social History Tobacco Use Types Packs/Day Years Used Date Smoking Tobacco: Never Passive Smoke Exposure: Never Smokeless Tobacco: Never Tobacco Cessation:Counseling Given: No Alcohol Use Standard Drinks/Week Comments Never 0 (1 standard drink = 0.6 oz pur e alcohol) Feeling Safe Answer Date Recorded Do you worry about feeling s afe and happy with the people in your life? No 03/06/2025 Food Insecurity Answer Date Recorded Do you find you are eating l ess than you should because you can t pay for food? No 03/06/2025 Transportation Needs Answer Date Record ed Have you gone without health care because you didn t have a way to get there? Or worry about transportation for future doctor visits, product picker medication, etc.? No 2024 Housing Stability Answer Date Recorded Do you worry you won t have a steady place to sleep or struggle to pay rent or mortgage? No 03/06/2025 Utility Needs Answer Date Recorded Do you have difficulty payin g for utility costs (electric, water or gas bills)? No 03/06/2025 Medication Needs Answer Date Recorded Have you skipped taking medi cation due to cost or worry you can t afford new medications? No 03/06/2025 Feeling Safe Answer Date Recorded Are you in a relationship wi th someone who hurts you emotionally and/or physically? No 03/06/2025 Food Insecurity Answer Date Recorded Patient needs follow up regardin 03/06/2025 Transportation Needs Answer Date Record ed Patient needs follow up regardin 03/06/2025 Utility Needs Answer Date Recorded Patient needs follow up regardin 03/06/2025 Comments Unknown Sex and Gender Information Value Date Recorded Sex Assigned at Not on file Legal Sex Female 1:28 PM CDT Gender Identity Not on file Sexual Orientation Not on file Last Filed Vital Signs Vital Sign Reading Time Taken Comments Blood Pressure 150/82 03/23/2025 2:48 PM CDT Pulse 64 03/23/2025 2:48 PM CDT Temperature 37 C (98.6 F) 03/23/2025 2:48 PM CDT Respiratory Rate 14 03/09/2025 7:08 AM CDT Oxygen Saturation 98% 03/23/2025 2:48 PM CDT Inhaled Oxygen Concentration - - Weight 69.4 kg (153 lb) 03/23/2025 2:48 PM CDT Height 162.6 cm (5' 4 ) 03/23/2025 2:48 PM CDT Body Mass Index 26.26 03/23/2025 2:48 PM CDT Plan of Treatment Upcoming Encounters Date Type Department Care Team (Late st Contact Info) Description 07/27/2025 1:30 PM MED DIR Office Visit [facility] Neurosurgery [address] [place] [address] Nhi Guerrero, DOORPERSON OR LUGGAGE PORTER [address] [place] [address] Health Maintenance Due Date Last Done Comments Pre-Diabetes and Diabetes Screening 1955 BREAST CANCER SCREENING 1996 COLORECTAL SCREENING 01/16/2001 Colorectal Cancer Screening 01/16/2001 FIT-DNA Q 3 years 01/16/2001 FIT/FOBT Q 1 year 01/16/2001 Flex Sig/CT Colonography Q 5 years 01/16/2001 PNEUMOCOCCAL VACCINE 50+ YEA RS (1 of 1 - PCV) 01/16/2006 RSV VACCINE (60+ or ) (1 - Risk 50-74 years 1-dose series) 01/16/2006 ZOSTER VACCINE (1 of 2) 01/16/2006 OSTEOPOROSIS SCREENING 01/16/2021 Medicare Advantage ([place]) Prev entative Visit/Annual Wellness Visit 08/24/2024 INFLUENZA VACCINE (#1) 2025 09/29/2022, 2018 DTAP/TDAP/TD VACCINES (2 - Td or Tdap) 07/26/2029 Insurance Advance Directives For more information, please contact: [phone] * Full Code (Latest Code Status on File) Date Activated Date Inactivated Comments 03/06/2025 9:09 AM 03/09/2025 1:54 PM
--- OUTSIDE RECORDS SUMMARY | 2025-07-05 15:10 | XMS_ITS | Encounter Summary ---
Author Organization [facility] Address [address] [place] [address] Care Team Providers Care Dictaphone Mechanic Name Role Phone Unavailable Primary Care Provider Unavailabl e Reason for Visit * Reason Onset Date Comments Follow Up 07/03/2025 Encounter Details Date Type Department Care Team (Late st Contact Info) Description 07/03/2025 Telephone [facility] Neurosurgery [address] [place] [address] Nhi Guerrero, [facility] [address] [place] [address] Follow Up Social History Tobacco Use Types Packs/Day Years Used Date Smoking Tobacco: Never Passive Smoke Exposure: Never Smokeless Tobacco: Never Alcohol Use Standard Drinks/Week Comments Never 0 [...] worry about transportation for future doctor visits, fruit or nut picker medication, etc.? No 2024 Housing Stability [...] on file Sexual Orientation Not on file documented as of this encounter Miscellaneous Notes * Telephone Encounter - Carolina Shah CMA - 07/03/2025 10:59 AM [facility] PLANS STAFF OFFICER I called Ms. Steiner to confirm that we got her call, we have added her to our wait list, and we are bringing her issues to the provider. I left this in a VM and let her know that we will call her if we can get her in sooner. PLANS STAFF OFFICER documented in this encounter Plan of Treatment Upcoming Encounters Date Type Department Care Team (Late st Contact Info) Description 07/27/2025 1:30 PM AADC PLANS STAFF OFFICER Office Visit [facility] Neurosurgery [address] [place] [address] Nhi Guerrero, MORTUARY TECHNICIAN [address] [place] [address] documented as of this encounter Visit Diagnoses Not on filedocumented in this encounter Additional Health Concerns Assessment Noted Time PHQ-9 Depression Total Score: 2 03/06/20 25 3:00 PM CDT documented as of this encounter
[2025-07-05 15:18] LABS: Hematocrit 39.7 % (36-47); Hemoglobin 14.00 g/dL (11.27-16.99); Mean Corpuscular HGB Conc 35.3 g/dL (30-55); Mean Corpuscular Hemoglobin 32.9 pg (27-33); Mean Corpuscular Volume 93.2 fl (85-98); Nucleated Red Blood Cells % 0 %; Platelet Count 275 10^3/cmm (157-399); Red Blood Count 4.26 10^6/uL (3.85-5.65); White Blood Count 7.77 10^3/uL (3.29-11.43)
--- NOTE | 2025-07-05 15:21 | ECG_ITS ---
[facility]: 2025-07-05 Pat Name: Belkys Steiner Department: Room: Gender: Female Patent Law Specialist: : 1955 Requested By: Radha Cerda Order Number: [id number] Lisandro MD: Narinder Velasco M.D. Measurements Intervals [place] Rate: 66 P: 20 VA: 140 QRS: 1 QRSD: 78 T: 54 QT: 422 QTc: 442 Interpretive Statements SINUS RHYTHM mild ST depression and T wave flattening Compared to ECG 12/04/2024 15:17:00 premature atrial contractions no longer present Electronically Signed On 07-05-2025 20:03:57 GLASS LATHE OPERATOR by Narinder Velasco M.D. [email or web address]
[2025-07-05 15:28] LABS: INR 1.13 (0.8-1.2); Partial Thromboplastin Time 31.7 SECONDS (23.9-36.7); Prothrombin Time 15.30 SECONDS (12.1-14.9)
[2025-07-05 15:31] LABS: Lactic Sepsis W/Reflex 1.3 mmol/L (0.5-2.2)
[2025-07-05 15:37] LABS: Alanine Aminotransferase 15 U/L (0-33); Albumin Level 4.6 g/dL (3.5-5.2); Alkaline Phosphatase 142 U/L (35-105); Anion Gap 17.3 (5-19); Aspartate Amino Transferase 16 U/L (0-32); Blood Urea Nitrogen 21 mg/dL (8-23); Calcium 9.6 mg/dL (8.5-10.5); Carbon Dioxide 22 mmol/L (22-29); Chloride 104 mmol/L (98-107); Globulin 2.7 g/dL (1.3-4.6); Glucose 101 mg/dL (65-115); Lipase 74 U/L (13-60); Osmolality Calculated 291 mOsm/kg (285-295); Potassium 4.3 mmol/L (3.5-5.1); Sodium 139 mmol/L (136-145); Total Protein 7.3 g/dL (6.6-8.7); Troponin(5th) Baseline < 6 ng/L (0-10)
[2025-07-05 15:57] LABS: NT Pro B Type Natriuretic Pept 199 pg/mL (0-125)
[2025-07-05 16:34] VITALS: BP 144/74; PULSE 71; O2SAT 98
--- NOTE | 2025-07-05 17:07 | ECG_ITS ---
[facility] [employer] [facility] Test Date: 2025-07-05 Pat Name: Belkys Steiner Department: Room: Gender: Female Architecture Instructor: : 1955 Requested By: Radha Cerda Order Number: [id number] Mcmahon MD: Johan Kim M.D. Measurements Intervals [place] Rate: 64 P: 48 [place]: 147 QRS: -7 QRSD: 82 T: 63 QT: 436 QTc: 450 Interpretive Statements SINUS RHYTHM POSSIBLE ANTERIOR MYOCARDIAL INFARCTION , PROBABLY OLD [30 ms Q WAVE IN V3/V4, OR R < 0.2 mV IN V4] Compared to ECG 07/05/2025 15:21:15 Myocardial infarct finding now present Electronically Signed On 07-07-2025 19:51:44 TAR KETTLE RUNNER by Johan Kim M.D. [email or web address]
[2025-07-05 17:26] LABS: Troponin 5 2HR < 6.0 ng/L (0-10); Troponin 5 2HR Delta 0 ABS# (0-10)
[2025-07-05 17:30] VITALS: BP 149/74; PULSE 62; O2SAT 98
[2025-07-05 17:38] LABS: UA Manual Slide Review YES
--- NOTE | 2025-07-05 17:52 | CTR_ITS ---
PROCEDURE INFORMATION: Exam: CT Head Without Contrast Exam date and time: 07/05/2025 5:59 PM Age: 70 years old Clinical indication: Condition or disease; Other: Nph; Other: PT experiences balance issues when walking/standing, confusion, and exhaustion w/min exertion; Prior surgery; Surgery date: 1-6 months; Surgery type: PT had a drain place on 03/06/25 and removed on 03/10/25 due to hydrocephalus; PT is supposed to be following up with neuro for possible shunt placement post hospital stay 03/06-03/10. Follow up appointment has been rescheduled multiple times by provider office and PT symptoms are continuing to worsen. ; Additional info: History of nph TECHNIQUE: Imaging protocol: Computed tomography of the head without contrast. Radiation optimization: All CT scans at this facility use at least one of these dose optimization techniques: automated exposure control; mA and/or kV adjustment per patient size (includes targeted exams where dose is matched to clinical indication); or iterative reconstruction. COMPARISON: CT head wo con* [id number] 12/04/2024 4:39 PM RADIATION DOSE METRICS: Total DLP (mGy-cm): 1029.69 FINDINGS: Brain: No intracranial hemorrhage or hematoma is seen. No mass effect or shift of midline structures. Small amount of periventricular low attenuation bilaterally likely minimal chronic small-vessel disease address change clerk minimal transependymal CSF resorption . No findings to indicate territorial or large vessel ischemic infarct. Cerebral ventricles: Generalized ventricular dilatation is similar in appearance to prior exam 12/04/2024. Ventricular dilatation appears out of proportion for appearance of sulci and cisterns. (Body of the right lateral ventricle measures 2.4 cm and body of the left lateral ventricle measures 2.6 cm on axial series 5, image 28. The frontal horns measure 2.6 cm on the right and 2.8 cm on the left on axial series 5, image 23. The proximal occipital horns measure 1.9 cm on the right and 2.1 cm on the left on axial series 5, image 26. The 3rd ventricle measures 1.4 cm on axial series 5, image 19. The 4th ventricle measures 1.4 cm on axial series 5, image 16.) Paranasal sinuses: Visualized sinuses are unremarkable. No fluid levels. Mastoid air cells: Visualized mastoid air cells are well aerated. Bones: Bone windows of the skull show no acute abnormality. Soft tissues: Unremarkable. CT/CT head wo con* [id number] IMPRESSION: 1. Ventriculomegaly or hydrocephalus consistent with normal pressure hydrocephalus as noted clinically. Ventricular dilatation appears similar in appearance to prior exam 12/04/2024. 2. No acute findings otherwise.
[2025-07-05 18:45] VITALS: BP 191/86; PULSE 63; O2SAT 99
[2025-07-05 19:19] VITALS: BP 204/101; O2SAT 100
[2025-07-05 20:06] VITALS: BP 197/79; PULSE 60; O2SAT 99
== END 2025-07-05 20:07 | disposition home or self-care (01) ==
PROVIDERS: Emergency Provider Emergency Medicine
DX: R55 Syncope and collapse (principal); Z79.01 Long term (current) use of anticoagulants; E78.5 Hyperlipidemia, unspecified; I25.10 Atherosclerotic heart disease of native coronary artery without angina pectoris; I10 Essential (primary) hypertension
CPT/HCPCS: 36415; 70450; 71045; 80053; 81001; 83605; 83690; 83880; 84484; 85025; 85610; 85730; 93005; 99285